=== PATIENT | female | born 1995 | race Caucasian/White ===

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

== ENCOUNTER 2017-03-04 14:25 | Emergency (ER) | payer MEDICAID, OTHER ==
[~2017-03-04] VITALS: Ht 165.1 cm; Wt 86.4 kg
[~2017-03-04 14:25] MED LIST changes: -LEVORA
[2017-03-04 14:55] VITALS: BP 156/89
[2017-03-04] MEDS ORDERED: LEVORA (14:59)
== END 2017-03-04 16:43 | disposition left against medical advice (07) ==
LOC: M ED 14:25
DX: J02.9 Acute pharyngitis, unspecified (principal); Z53.21 Procedure and treatment not carried out due to patient leaving prior to being seen by health care provider

== ENCOUNTER → 2017-03-04 | Outpatient (CLI) | payer OTHER ==
[~2017-03-04] MED LIST changes: +ACET50TA PO; +IBUP-1114 PO; +LEVORA; +PRENTAB9 PO
== END ==
LOC: M LAB 17:42
PROVIDERS: ATTEND Physician Assistant
DX: R53.83 Other fatigue (principal)

== ENCOUNTER → 2017-07-21 | Outpatient (REF) | payer OTHER ==
[2017-07-22 08:13] LABS: INFLUENZA A AMPLIFICATION NEGATIVE (NEGATIVE); INFLUENZA B AMPLIFICATION NEGATIVE (NEGATIVE)
== END ==
LOC: M LAB REF 21:19
DX: J11.1 Influenza due to unidentified influenza virus with other respiratory manifestations (principal)

== ENCOUNTER → 2017-08-05 | Outpatient (CLI) | payer OTHER | LOC: M RAD 12:10 | DX: G93.2 Benign intracranial hypertension (principal) ==

== ENCOUNTER 2017-08-09 14:20 | Emergency (ER) | payer OTHER ==
[2017-08-09] MEDS ORDERED: PROHANCE 279.3MG/ML 15ML VIAL (A9576) As Ordered (16:37)
[2017-08-09] MEDS ORDERED: PROHANCE 279.3MG/ML 5ML VIAL (A9576) As Ordered (16:37)
== END 2017-08-09 18:35 | disposition home or self-care (01) ==
LOC: M ED 14:20
DX: G93.2 Benign intracranial hypertension (principal); Z98.2 Presence of cerebrospinal fluid drainage device; Z79.899 Other long term (current) drug therapy
CPT/HCPCS: A9576

== ENCOUNTER → 2017-08-11 | Outpatient (CLI) | payer OTHER ==
[~2017-08-11] MED LIST changes: -ACET50TA PO; +ACETAMINOPHEN 325 MG TAB As Ordered; -DIAM500C PO; -IBUP-1114 PO; -NORCOTAB PO; -NORT10CA2 PO; -PRENTAB9 PO; -trimethoprim OR
[2017-08-11 14:32] LABS: CSF RBC < 2 10^3/uL (<2)
[2017-08-11 14:33] LABS: APPEARANCE, CSF CLEAR (CLEAR); COLOR, CSF COLORLESS (COLORLESS); CSF DIFF IF INDICATED? NO (NO); CSF TUBE# CELL CNT TUBE 1; CSF WBC 1 /uL (0-10)
[2017-08-11 14:52] LABS: CSF TUBE# GLU TUBE 3; CSF TUBE# TP TUBE 3; GLUCOSE CSF 65 MG/DL (40-75); TOTAL PROTEIN,CSF 19.3 MG/DL (15-45)
[2017-08-12 08:21] LABS: CSF GROUP B STREP NEGATIVE (NEGATIVE); CSF H. INFLUENZA NEGATIVE (NEGATIVE); CSF N MENINGITIDIS ACYW135 NEGATIVE (NEGATIVE); CSF STREP PNUEMO NEGATIVE (NEGATIVE); CSF TUBE# BACT AG TUBE 2
[2017-08-13 14:18] LABS: IMMUNOGLOBULIN G CSF 1.2 mg/dL (0.0-8.6)
== END ==
LOC: M RADPRO 12:03
DX: G93.2 Benign intracranial hypertension (principal); Z79.899 Other long term (current) drug therapy
CPT/HCPCS: 62272

== ENCOUNTER → 2017-11-10 | Outpatient (CLI) | payer OTHER ==
[2017-11-10 17:43] LABS: CONTROL LINE HCG INT CTR LINE PRESENT; HCG, SERUM QUALITATIVE NEGATIVE (NEGATIVE)
== END ==
LOC: M LAB 16:42
DX: Z34.82 Encounter for supervision of other normal pregnancy, second trimester (principal)

== ENCOUNTER → 2017-11-10 | Outpatient (CLI) | payer OTHER ==
[2017-11-10 13:16] LABS: BASO % 0.4 % (0.0-1.0); EOS # 0.2 10^3/uL (0.0-0.50); EOS % 2.4 % (0.0-3.0); HEMATOCRIT 37.7 % (36.0-47.0); HEMOGLOBIN 12.4 g/dl (12.0-15.5); IMMATURE GRANULOCYTE % 0.7 % (0-3.0); LYMPH # 2.2 10^3/uL (1.5-6.5); LYMPH % 31.7 % (24.0-44.0); MEAN CORPUSCULAR HEMOGLOBIN 27.9 pg (27.0-33.0); MEAN CORPUSCULAR HGB CONC 32.9 g/dl (32.0-36.5); MEAN CORPUSCULAR VOLUME 84.7 fl (80.0-96.0); MONO # 0.6 10^3/uL (0.0-0.8); MONO % 8.2 % (0.0-5.0); NEUTROPHILS # 3.9 10^3/uL (1.8-7.7); NEUTROPHILS % 56.6 % (36.0-66.0); PLATELET COUNT, AUTOMATED 309 10^3/uL (150-450); RED BLOOD COUNT 4.45 10^6/uL (4.00-5.40); RED CELL DISTRIBUTION WIDTH 13.5 % (11.5-14.5); WHITE BLOOD COUNT 6.9 10^3/uL (4.0-10.0)
[2017-11-10 13:24] LABS: APPEARANCE, URINE CLEAR (CLEAR); BACTERIA, URINE AUTO NEGATIVE (NEGATIVE); BILIRUBIN, URINE AUTO NEGATIVE (NEGATIVE); BLOOD, URINE BLOOD NEGATIVE (NEGATIVE); COLOR, URINE YELLOW (YELLOW); GLUCOSE, URINE (UA) AUTO NEGATIVE (NEGATIVE); KETONE, URINE AUTO NEGATIVE (NEGATIVE); LEUKOCYTE ESTERASE, URINE AUTO TRACE (NEGATIVE); NITRITE, URINE AUTO NEGATIVE (NEGATIVE); PROTEIN, URINE AUTO NEGATIVE (NEGATIVE); RBC, URINE AUTO 1 /HPF (0-3); SPECIFIC GRAVITY URINE AUTO 1.021 (1.002-1.035); SQUAMOUS EPITHELIAL CELL UR AU 1 /HPF (0-6); UROBILINOGEN, URINE AUTO 0.2 mg/dL (0.0-2.0); WBC, URINE AUTO 1 /HPF (0-3)
[2017-11-10 13:27] LABS: INR 0.94; PROTHROMBIN TIME 12.6 SECONDS (12.4-14.5)
[2017-11-10 13:28] LABS: PARTIAL THROMBOPLASTIN TIME 32.6 SECONDS (26.8-37.9)
[2017-11-10 14:02] LABS: ANION GAP 4 MEQ/L (8-16); BLOOD UREA NITROGEN 9 MG/DL (7-18); CALCIUM LEVEL 8.9 MG/DL (8.5-10.1); CARBON DIOXIDE LEVEL 28 MEQ/L (21-32); CHLORIDE LEVEL 108 MEQ/L (98-107); GLUCOSE, FASTING 121 MG/DL (70-100); POTASSIUM SERUM 4.4 MEQ/L (3.5-5.1); SODIUM LEVEL 140 MEQ/L (136-145)
== END ==
LOC: M LAB 12:31
DX: H47.333 Pseudopapilledema of optic disc, bilateral (principal); G93.2 Benign intracranial hypertension

== ENCOUNTER → 2017-11-20 | Outpatient (CLI) | payer OTHER ==
[~2017-11-20] MED LIST changes: -ACETAMINOPHEN 325 MG TAB As Ordered; +LIDOCAINE 1% MDV 20ML VIAL As Ordered
[2017-11-20 15:43] LABS: CSF RBC < 2 10^3/uL (<2)
[2017-11-20 15:44] LABS: APPEARANCE, CSF CLEAR (CLEAR); COLOR, CSF COLORLESS (COLORLESS); CSF DIFF IF INDICATED? NO (NO); CSF TUBE# CELL CNT TUBE 1; CSF WBC 1 /uL (0-10)
[2017-11-20 15:50] LABS: CSF TUBE# GLU TUBE 1; CSF TUBE# TP TUBE 1; GLUCOSE CSF 56 MG/DL (40-75); TOTAL PROTEIN,CSF 18.5 MG/DL (15-45)
== END ==
LOC: M RADPRO 12:09
DX: G93.2 Benign intracranial hypertension (principal); H47.11 Papilledema associated with increased intracranial pressure; Z95.828 Presence of other vascular implants and grafts; Z79.899 Other long term (current) drug therapy
CPT/HCPCS: 62272

== ENCOUNTER → 2017-12-09 | Outpatient (CLI) | payer OTHER ==
[2017-12-09 10:52] LABS: FREE T4 0.83 NG/DL (0.78-1.33)
[2017-12-09 10:52] LABS: GLUCOSE, FASTING 102 MG/DL (70-100)
[2017-12-09 10:54] LABS: TOTAL 25(OH) VITAMIN D 13.8 NG/ML (30.0-100.0)
[2017-12-09 11:06] LABS: CONTROL LINE HCG INT CTR LINE PRESENT; HCG, SERUM QUALITATIVE NEGATIVE (NEGATIVE)
[2017-12-13 09:05] LABS: INSULIN FREE 47 uU/mL (.); INSULIN TOTAL2 47 uU/mL (.)
== END ==
LOC: M LAB 09:39
DX: R63.5 Abnormal weight gain (principal); F32.89 Other specified depressive episodes; N91.1 Secondary amenorrhea
CPT/HCPCS: 82947

== ENCOUNTER → 2017-12-23 | Outpatient (CLI) | payer OTHER ==
[2017-12-23 12:19] LABS: CSF TUBE# GLU TUBE 3; CSF TUBE# TP TUBE 1; GLUCOSE CSF 58 MG/DL (40-75); TOTAL PROTEIN,CSF 19.7 MG/DL (15-45)
[2017-12-23 12:33] LABS: CSF RBC < 2 10^3/uL (<2)
[2017-12-23 12:36] LABS: APPEARANCE, CSF CLEAR (CLEAR); COLOR, CSF COLORLESS (COLORLESS); CSF DIFF IF INDICATED? NO (NO); CSF TUBE# CELL CNT TUBE 1; CSF WBC 1 /uL (0-10)
[2017-12-26 00:08] LABS: IMMUNOGLOBULIN G CSF 1.2 mg/dL (0.0-8.6)
== END ==
LOC: M RADPRO 10:49
DX: G93.2 Benign intracranial hypertension (principal); H47.10 Unspecified papilledema
CPT/HCPCS: 62272

== ENCOUNTER → 2018-06-16 | Outpatient (CLI) | payer OTHER ==
[~2018-06-16] MED LIST changes: +ACET250T2; +DIAM500C PO; +IBUP-1114 PO; +LEVORA; -LIDOCAINE 1% MDV 20ML VIAL As Ordered; +MAPA500T2 PO; +NORCOTAB PO; +NORT10CA2 PO; +PRENTAB9 PO; +trimethoprim OR
--- NOTE | 2018-06-17 02:14 | REP ---
Clinical: Dating and viability. Technique: Transabdominal first trimester obstetrical ultrasound with color Doppler evaluation. Findings: Single live early intrauterine is appreciated. Placenta identified posteriorly and grade zero. Cervix measures 3.4 cm in length and appears closed. Biometrical measurements corresponds to 13 weeks 4 days gestational age with estimated date of delivery 12/18/2018 . heart rate equals 160 beats per minute. No gross abnormalities are identified. Impression: Single live early intrauterine at 13 weeks 4 days gestational age. Complete anatomical assessment should be performed and 19-20 weeks. Electronically Signed by Chapin Hoang MD 06/17/2018 02:07 A
== END ==
LOC: M SMT 14:41
PROVIDERS: ATTEND Advanced Practice Midwife
DX: Z36.89 Encounter for other specified antenatal screening (principal); Z3A.13 13 weeks gestation of pregnancy

== ENCOUNTER → 2018-06-18 | Outpatient (CLI) | payer OTHER ==
[2018-06-18 12:49] LABS: BASO % 0.2 % (0.0-1.0); EOS # 0.1 10^3/uL (0.0-0.50); EOS % 0.9 % (0.0-3.0); HEMATOCRIT 36.5 % (36.0-47.0); HEMOGLOBIN 12.4 g/dl (12.0-15.5); LYMPH # 1.8 10^3/uL (1.5-6.5); LYMPH % 20.4 % (24.0-44.0); MEAN CORPUSCULAR HEMOGLOBIN 29.8 pg (27.0-33.0); MEAN CORPUSCULAR VOLUME 87.7 fl (80.0-96.0); MONO # 0.5 10^3/uL (0.0-0.8); MONO % 5.2 % (0.0-5.0); NEUTROPHILS # 6.4 10^3/uL (1.8-7.7); NEUTROPHILS % 72.7 % (36.0-66.0); PLATELET COUNT, AUTOMATED 299 10^3/uL (150-450); RED BLOOD COUNT 4.16 10^6/uL (4.00-5.40); WHITE BLOOD COUNT 8.8 10^3/uL (4.0-10.0)
[2018-06-18 12:59] LABS: ALT/SGPT 20 U/L (12-78); BILIRUBIN,TOTAL 0.3 MG/DL (0.2-1.0); LDH LACTATE DEHYDROGENASE 132 U/L (84-246); URIC ACID 4.7 MG/DL (2.6-6.0)
[2018-06-18 13:06] LABS: TOTAL PROTEIN,RANDOM URINE 33.1 MG/DL (0.0-12.0)
[2018-06-18 13:19] LABS: RUBELLA IgG QUALITATIVE IMMUNE (IMMUNE)
[2018-06-18 13:47] LABS: HEPATITIS C VIRUS ABY INDEX 0.2 INDEX (<0.8)
[2018-06-18 13:48] LABS: HIV 1&2 SCREEN CENTAUR NEGATIVE (NEGATIVE)
[2018-06-18 14:44] LABS: CHLAMYDIA DNA AMPLIFICATION NEGATIVE (NEGATIVE); GC DNA AMPLIFICATION NEGATIVE (NEGATIVE)
== END ==
LOC: M LAB 10:43
PROVIDERS: ATTEND Advanced Practice Midwife
DX: Z34.81 Encounter for supervision of other normal pregnancy, first trimester (principal); Z3A.12 12 weeks gestation of pregnancy

== ENCOUNTER → 2018-07-24 | Outpatient (REF) | payer OTHER ==
[2018-07-26 12:45] LABS: CREATININE CLEARANCE, URINE 463.2 ML/MIN (75-115); CREATININE, SERUM 0.4 MG/DL (0.6-1.0); TOTAL PROTEIN 24 HOUR URINE 236.3 MG/24HR (50-150); URINE TOTAL PROTEIN 16.3 MG/DL (0-12)
== END ==
LOC: M LAB REF 09:40
PROVIDERS: ATTEND Advanced Practice Midwife
DX: Z34.81 Encounter for supervision of other normal pregnancy, first trimester (principal); Z3A.12 12 weeks gestation of pregnancy

== ENCOUNTER → 2018-08-02 | Outpatient (CLI) | payer OTHER ==
--- NOTE | 2018-08-02 19:44 | REP ---
Clinical: Anatomical evaluation. Findings: Examination demonstrates a single live intrauterine in breech presentation. motion is identified by technologist. Placenta is noted posterior and grade grade zero without evidence for placenta previa or abruption. Amniotic fluid volume is normal. Cervix measures 5.3 cm in length and appears closed. No evidence for nuchal cord. Gestational age by LMP 20 weeks 2 days with ELIS 12/18/2018 . Gestational age by current measurements 20 weeks 4 days with ELIS 12/16/2018 . FHR equals 131 beats per minute. BPD 4.8 cm 20 weeks 4-day HC 17.9 cm 20 weeks 2 days AC 15.4 cm 20 weeks 4 days FL 3.2 cm 20 weeks 0 days HL 3.4 cm 21 weeks 4 days HC/AC ratio 1.16 Estimated weight 346 grams ( 49th percentile). Anatomical assessment demonstrates normal structures including cranium, choroid plexus, cavum, cerebellum/posterior fossa, facial features, lungs, diaphragm, stomach, cord insertion/three-vessel cord, kidneys/bladder, spine, and extremities. Impression: Single live intrauterine in breech presentation demonstrating appropriate interval growth. In conjunction with prior examination limited evaluation of the cardiac ventricular outflow tracts is again noted. Remainder of the anatomical assessment is complete and normal. Electronically Signed by Chapin Hoang MD 08/02/2018 07:36 P
== END ==
LOC: M RAD 09:22
PROVIDERS: ATTEND Advanced Practice Midwife
DX: Z36.89 Encounter for other specified antenatal screening (principal); Z3A.20 20 weeks gestation of pregnancy

== ENCOUNTER → 2018-08-24 | Outpatient (CLI) | payer OTHER, MEDICAID ==
--- NOTE | 2018-08-24 15:11 | REP ---
Clinical: Anatomical evaluation. Comparison: 08/02/2018 . Findings: Examination demonstrates a single live intrauterine in variable presentation. motion is identified by technologist. Placenta is noted posterior and grade grade zero without evidence for placenta previa or abruption. Amniotic fluid volume is normal. Cervix measures 5.1 cm in length and appears closed. No evidence for nuchal cord. Gestational age by LMP 23 weeks 3 days with ELIS 12/18/2018 . Gestational age by current measurements 24 weeks 2 days with ELIS 12/12/2018 . FHR equals 153 beats per minute. Estimated weight 682 grams ( 72nd percentile). Anatomical assessment demonstrates normal structures including four-chamber heart/ventricular outflow tracts. Impression: 1. Single live intrauterine in variable presentation demonstrating appropriate interval growth. 2. In conjunction with prior examination anatomical assessment is complete and normal. No gross abnormalities are identified. Electronically Signed by Chapin Hoang MD 08/24/2018 03:03 P
== END ==
LOC: M RAD 12:59
PROVIDERS: ATTEND Specialist
DX: O99.212 Obesity complicating pregnancy, second trimester (principal); Z3A.23 23 weeks gestation of pregnancy

== ENCOUNTER → 2018-10-22 | Outpatient (CLI) | payer OTHER, MEDICAID ==
[~2018-10-22] MED LIST changes: +HYDR-3715 PO; -NORCOTAB PO
[2018-10-22 13:52] LABS: HEMATOCRIT 34.9 % (36.0-47.0); HEMOGLOBIN 11.4 g/dl (12.0-15.5); MEAN CORPUSCULAR HEMOGLOBIN 29.7 pg (27.0-33.0); MEAN CORPUSCULAR HGB CONC 32.7 g/dl (32.0-36.5); MEAN CORPUSCULAR VOLUME 90.9 fl (80.0-96.0); PLATELET COUNT, AUTOMATED 266 10^3/uL (150-450); RED BLOOD COUNT 3.84 10^6/uL (4.00-5.40)
== END ==
LOC: M LAB 11:38
PROVIDERS: ATTEND Advanced Practice Midwife
DX: Z34.82 Encounter for supervision of other normal pregnancy, second trimester (principal)

== ENCOUNTER 2018-10-28 12:21 | Emergency (ER) | payer OTHER, MEDICAID ==
[~2018-10-28] VITALS: Ht 167.6 cm; Wt 99.5 kg
[2018-10-28 16:03] LABS: BASO % 0.3 % (0.0-1.0); EOS # 0.3 10^3/uL (0.0-0.50); EOS % 2.6 % (0.0-3.0); HEMATOCRIT 36.6 % (36.0-47.0); LYMPH % 20.2 % (24.0-44.0); MEAN CORPUSCULAR HEMOGLOBIN 28.8 pg (27.0-33.0); MEAN CORPUSCULAR HGB CONC 32.8 g/dl (32.0-36.5); MEAN CORPUSCULAR VOLUME 87.8 fl (80.0-96.0); MONO # 0.6 10^3/uL (0.0-0.8); MONO % 6.2 % (0.0-5.0); NEUTROPHILS # 6.9 10^3/uL (1.8-7.7); NEUTROPHILS % 70.3 % (36.0-66.0); PLATELET COUNT, AUTOMATED 323 10^3/uL (150-450); RED BLOOD COUNT 4.17 10^6/uL (4.00-5.40); WHITE BLOOD COUNT 9.9 10^3/uL (4.0-10.0)
[2018-10-28 16:42] LABS: BLOOD UREA NITROGEN 6 MG/DL (7-18); CALCIUM LEVEL 8.6 MG/DL (8.5-10.1); CARBON DIOXIDE LEVEL 25 MEQ/L (21-32); CHLORIDE LEVEL 105 MEQ/L (98-107); CK-MB VALUE MASS < 1.0 NG/ML (<3.6); CPK CREATINE PHOSPHOKINASE 23 U/L (26-192); CREATININE FOR GFR 0.51 MG/DL (0.55-1.30); GLOMERULAR FILTRATION RATE > 60.0 (>60); GLUCOSE, FASTING 68 MG/DL (70-100); MB/CK RELATIVE INDEX 4.35 (< OR =4); POTASSIUM SERUM 4.8 MEQ/L (3.5-5.1); SODIUM LEVEL 137 MEQ/L (136-145); TROPONIN I < 0.02 NG/ML (< 0.10)
[2018-10-28 16:57] VITALS: BP 121/78
--- NOTE | 2018-10-29 05:57 | ECGEPIP ---
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
== END 2018-10-28 17:14 | disposition home or self-care (01) ==
LOC: M ED 12:21
DX: O99.89 Other specified diseases and conditions complicating pregnancy, childbirth and the puerperium (principal); R61 Generalized hyperhidrosis; R42 Dizziness and giddiness; O16.3 Unspecified maternal hypertension, third trimester; O99.353 Diseases of the nervous system complicating pregnancy, third trimester; G93.2 Benign intracranial hypertension; Z98.2 Presence of cerebrospinal fluid drainage device; Z3A.32 32 weeks gestation of pregnancy

== ENCOUNTER → 2018-11-19 | Outpatient (REF) | payer OTHER, MEDICAID | LOC: M LAB REF 17:36 | PROVIDERS: ATTEND Advanced Practice Midwife | DX: Z34.83 Encounter for supervision of other normal pregnancy, third trimester (principal) ==

== ENCOUNTER → 2018-11-19 | Outpatient (CLI) | payer OTHER, MEDICAID | LOC: M LAB 07:53 | PROVIDERS: ATTEND Advanced Practice Midwife | DX: Z34.82 Encounter for supervision of other normal pregnancy, second trimester (principal); Z3A.00 Weeks of gestation of pregnancy not specified ==

== ENCOUNTER → 2019-07-31 | Outpatient (REF) | payer OTHER ==
[~2019-07-31] MED LIST changes: +ACET-683 PO; +IBUP80TA PO
[2019-08-01 14:20] LABS: INFLUENZA A AMPLIFICATION NEGATIVE (NEGATIVE); INFLUENZA B AMPLIFICATION NEGATIVE (NEGATIVE)
== END ==
LOC: M LAB REF 12:03
PROVIDERS: ATTEND Physician Assistant
DX: J11.1 Influenza due to unidentified influenza virus with other respiratory manifestations (principal)

== ENCOUNTER → 2020-05-10 | Outpatient (REF) | payer OTHER | LOC: M SFHCWAGY 13:33 | PROVIDERS: ATTEND Advanced Practice Midwife | DX: Z12.4 Encounter for screening for malignant neoplasm of cervix (principal); R87.612 Low grade squamous intraepithelial lesion on cytologic smear of cervix (LGSIL) ==

== ENCOUNTER → 2020-06-07 | Outpatient (REF) | payer OTHER ==
[2020-06-07 14:21] LABS: HEMATOCRIT 36.2 % (36.0-47.0); HEMOGLOBIN 11.7 g/dl (12.0-15.5); MEAN CORPUSCULAR HEMOGLOBIN 27.9 pg (27.0-33.0); MEAN CORPUSCULAR HGB CONC 32.3 g/dl (32.0-36.5); MEAN CORPUSCULAR VOLUME 86.4 fl (80.0-96.0); PLATELET COUNT, AUTOMATED 285 10^3/uL (150-450); RED BLOOD COUNT 4.19 10^6/uL (4.00-5.40); WHITE BLOOD COUNT 8.8 10^3/uL (4.0-10.0)
[2020-06-07 14:30] LABS: ALT/SGPT 19 U/L (12-78); BILIRUBIN,TOTAL 0.3 MG/DL (0.2-1.0); CREATININE FOR GFR 0.52 MG/DL (0.55-1.30); GLOMERULAR FILTRATION RATE > 60.0 (>60); GLUCOSE CHALLENGE TEST 1 HOUR 151 MG/DL (LESS THAN 140); LDH LACTATE DEHYDROGENASE 115 U/L (84-246); URIC ACID 3.6 MG/DL (2.6-6.0)
[2020-06-07 14:44] LABS: TOTAL PROTEIN,RANDOM URINE 9.3 MG/DL (0.0-12.0)
[2020-06-07 15:15] LABS: HEPATITIS C VIRUS ABY INDEX 0.2 INDEX (<0.8)
[2020-06-07 20:18] LABS: HIV 1&2 SCREEN CENTAUR NEGATIVE (NEGATIVE)
== END ==
LOC: M PLALAB 09:47
PROVIDERS: ATTEND Advanced Practice Midwife
DX: Z3A.01 Less than 8 weeks gestation of pregnancy (principal)

== ENCOUNTER 2020-07-05 18:57 | Emergency (ER) | payer OTHER ==
[~2020-07-05] VITALS: Ht 167.6 cm; Wt 95.1 kg
[2020-07-05 18:57] VITALS: BP 130/79
[~2020-07-05 18:57] MED LIST changes: -MULTTAB20 PO
--- OUTSIDE RECORDS SUMMARY | 2020-07-05 19:04 | CCD ---
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 Name Role Phone Eugenia Casanova Unavailable PROBLEMS Type Condition ICD9-CM Code ANE31-XG Code Onset Dates Condition S tatus SNOMED Code Notes Problem BMI 33.0-33.9,adult Z68.33 Active 033724685 Problem Supervision of other normal Z34.80 Ac tive [id number] Problem Obesity affecting in first trimester O99 .211 Active [id number] ALLERGIES No Known Allergies ENCOUNTERS from 1995 to 2020-04-24 Encounter Location Date Provider Diagnosis [facility] [address] [place] [address] Apr, Eugenia Casanova Obesity affecting in first trimester O99.211 ; 7 weeks gestation of Z3A.01 and BMI 33.0- 33.9,adult Z68.33 IMMUNIZATIONS No Information SOCIAL HISTORY Tobacco Use: Social History Observation Description Date Details (start date - stop date) Never Smoker Sex Assigned At : Social History Observation Description Sex Assigned At Unknown Sexual Hx: Question Answer Notes Had sex in the last 12 months (vaginal, oral, or anal)? Yes LMP: 02/07/2020 Have you ever had an STD? No with Men only Use protection? No Alcohol Screening: Question Answer Notes Did you have a drink containing alcohol in the past year? No Points 0 Interpretation Negative Tobacco Use: Question Answer Notes Are you a: never smoker REASON FOR REFERRAL No Information VITAL SIGNS Weight 209.8 lbs Apr, Weight-kg 95.16 kg Apr, Height 66 in Apr, BMI 33.863 kg/m2 Apr, Blood pressure systolic 102 mm Hg Apr, Blood pressure diastolic 84 mm Hg Apr, MEDICATIONS Medication SIG (Take, Route, Frequency, Duration) Notes Start Da te End Date Status 27-1 MG 1 tablet Orally Once a day Active PROCEDURES No Information RESULTS No Results REASON FOR VISIT 1ST PN MEDICAL (GENERAL) HISTORY Type Description Date Medical History Pseudotumor Cerebri Surgical History Lumbar shunt 2016 Surgical History Ovarian cyst removed 2014 Surgical History T&A Hospitalization History Childbirth x2 Hospitalization History Lumbar shunt Goals Section No Information Health Concerns No Information MEDICAL EQUIPMENT No Information MENTAL STATUS No Information FUNCTIONAL STATUS No Information ASSESSMENTS Encounter Date Diagnosis Assessment Notes Treatment Notes Treatm ent Clinical Notes Apr, Obesity affecting in first tri mester (ICD-10 - O99.211) Apr, 7 weeks gestation of (ICD-10 - Z3A.01) Apr, BMI 33.0-33.9,adult (ICD-10 - Z68.33) PLAN OF TREATMENT Treatment Notes Test Name Order Date Pre Eclampsia Profile 2020-04-24 CREATININE,RANDOM URINE 2020-04-24 CBC - Complete Blood Count 2020-04-24 TOTAL PROTEIN,RANDOM URINE 2020-04-24 HIV 1&2 ANTIBODY SCREEN 2020-04-24 SYPHILIS ANTIBODY (RPR SCREEN) 2020-04-24 RUBELLA IMMUNE STATUS IgG 2020-04-24 URINE CULTURE 2020-04-24 CHLAMYDIA & GC DNA AMPLIFICAT 2020-04-24 HEPATITIS C ANTIBODY INDEX 2020-04-24 HBSAG 2020-04-24 Type and Screen Prenatal1 2020-04-24 HEMOGLOBIN A1c 2020-04-24 1 HR GLUCOSE (NON-ORDERABLE) 2020-04-24 Next Appt Details 4 Weeks Reason: Provider Name:Eugenia Casanova, 2020-05-10 11:00:00 AM, [address] [place], [address], Follow Up:4 WeeksPrenatal Insurance Providers Payer Name Payer Address Payer Phone Insured Name Patient Relati onship to Insured Coverage Start Date Coverage End Date [facility] [address] [address] [facility] [phone] J Carlos Vega
--- OUTSIDE RECORDS SUMMARY | 2020-07-05 19:04 | CCD ---
Author Author [facility] Organization [facility] Address Unknown Phone Unavailable Support Name Relationship Address Phone [facility] [place] [address] NICOLA BUCIO Next Of Kin [address] [place] [phone] [facility] [place] [address] SKH* Next Of Kin [address] [place] [address] LIDA HUNTLEY Next Of Kin [address] [place] [address] AIDAN DUNGVIGNESH Next Of Kin [address] [place] [address] [employer] Next Of Kin [address] [place] [address] ST Next Of Kin Unknown Unavailable UE Next Of Kin Unknown Unavailable CLEVELAND MIXON Next Of Kin [address] [place] [address] THAD MIXON Next Of Kin [address] [place] [address] MONTSERRAT MIXON Next Of Kin [address] [place] [address] NICOLA BUCIO ECON [address] [place] [address] Unavailable Re-disclosure Warning The records that you are about to access may contain information from federally-assisted alcohol or drug abuse programs. If such information is present, then the following federally mandated warning applies: This information has been disclosed to you from records protected by federal confidentiality rules (42 CFR part 2). The federal rules prohibit you from making any further disclosure of this information unless further disclosure is expressly permitted by the written consent of the person to whom it pertains or as otherwise permitted by 42 CFR part 2. A general authorization for the release of medical or other information is NOT sufficient for this purpose. The Federal rules restrict any use of the information to criminally investigate or prosecute any alcohol or drug abuse patient.The records that you are about to access may contain highly sensitive health information, the redisclosure of which is protected by Article 27-F of the [facility] Public Health law. If you continue you may have access to information: Regarding HIV / AIDS; Provided by facilities licensed or operated by the [facility] Office of Mental Health; or Provided by the [facility] Office for People With Developmental Disabilities. If such information is present, then the following [facility] mandated warning applies: This information has been disclosed to you from confidential records which are protected by state law. State law prohibits you from making any further disclosure of this information without the specific written consent of the person to whom it pertains, or as otherwise permitted by law. Any unauthorized further disclosure in violation of state law may result in a fine or [place] health care facility sentence or both. A general authorization for the release of medical or other information is NOT sufficient authorization for further disc losure. Family History Family Member Name Family Member Gender Family Member Status Date o f Status Description Data Source(s) Unknown Unknown Problem MEDENT ([facility]) Unknown Unknown Problem [facility] ) Unknown Unknown Problem MEDENT ([facility], ) Unknown Unknown Problem MEDENT ([facility], ) Unknown Unknown Problem [facility] ) Unknown [facility] Problem MEDENT ([facility] ) Unknown Unknown Problem [facility] ) Unknown Unknown Problem [facility] ) Unknown Unknown Problem MEDENT [facility] ) Unknown [facility] Problem MEDENT ([facility] ) Unknown Unknown Problem MEDENT ([facility] ) Unknown Unknown Problem [facility] ) Unknown Unknown Problem MEDENT ([facility], ) Unknown Unknown Problem MEDENT ([facility], ) Unknown Unknown Problem MEDENT ([facility], ) Encounters Encounter Providers Location Date Indications Data Source(s ) Unknown [address] [facility] [address] 06/08/2020 12:00:00 AM EST eCW1 ([facility]) (WC [facility]) [facility] [address] [place] [address] 06/07/2020 12:00:00 AM EST eCW1 ([facility]) (WC ESTOB) [facility] [address] [place] [address] 05/10/2020 12:00:00 AM EST eCW1 ([facility]) ( ESTOB) [facility] [address] [place] [address] 04/11/2020 12:00:00 AM EST eCW1 ([facility]) Outpatient [facility] 12/09/2019 04:24:00 PM EDT [facility] Outpatient [facility] 11/29/2019 12:02:24 AM EDT [facility] Outpatient [facility] 11/28/2019 12:32:01 PM EDT [facility] Insurance Providers Payer name Policy type / Coverage type Policy ID Covered libertarian ID Covered libertarian's relationship to dong Policy Dong Plan Information UMR [facility] [id number] DA2 [id number] UMR P UNAVAILABLE S UNAVAILA BLE UMR [facility] [id number] FA2 [id number] MEDICAID [id number] SP [id number] UMR [facility] [id number] FA2 [id number] UMR [facility] [id number] FA2 [id number] UMR [facility] [id number] FA2 [id number] MEDICAID [id number] SP [id number] UMR U [id number] Child [id number] UMR O [id number] S [id number] [facility] [facility] [employer] (HMO) [id number] Family Dependent [id number] [facility] [facility] [employer] [facility] (HMO) [id number] Family Dependent [id number] [place] Med[place] Part [place] [id number] Self [id number] Umr Commercial [id number] Self [id number] [place] [id number] Self [id number] [employer] (HMO) [id number] Fa maru Dependent [id number] UMR [facility] [id number] FA2 [id number] UMR U [id number] Child [id number] POM[facility] [id number] FA2 [id number] [facility] U [id number] Child [id number] [employer] PPO O [id number] O [id number] MEDICAID [id number] SP [id number] [place] Med[place] Part [place] [id number] Self [id number] [employer] (HMO) [id number] Fa maru Dependent [id number] MEDICAID [id number] SP [id number] [place] Medigap Part [place] [id number] Self [id number] [employer] (HMO) [id number] Fa maru Dependent [id number] [employer] (HMO) Fa maru Dependent [employer] [id number] FA2 [id number] [employer] PPO O [id number] C [id number] Medicaid-Pcap Medicaid Family Dependent [employer] Ppo Commercial Family Dependent [employer] Commercial Family Dependent [employer] [id number] FA2 [id number] [employer] [id number] FA2 [id number] Problems, Conditions, and Diagnoses Code Display Name Description Problem Type Effective Dates Data Source(s) O99.212 Maternal obesity complicatin g , childbirth and the puerperium, antepartum Obesity complicating , second trimester Problem 06/08/2020 12:00:00 AM EST eCW1 ([facility]) O99.212 Maternal obesity complicatin g , childbirth and the puerperium, antepartum Obesity complicating in second trimester Problem 06/07/2020 12:00:00 AM EST eCW1 ([facility]) Z3A.11 [id number] 11 weeks gestation of Problem 05/10/2020 12:00:00 AM EST eCW1 ([facility]) Z68.33 867026374 BMI 33.0-33.9,adult Problem 04/11/2020 12:00 :00 AM EST eCW1 ([facility]) O99.211 [id number] Obesity affecting in first trim korey Problem 04/11/2020 12:00:00 AM EST eCW1 ([facility]) Z34.80 care Supervision of other normal P ziggylem 04/11/2020 12:00:00 AM EST eCW1 ([facility]) Results ID Date Data Source [id number] 07/03/2020 12:00:00 AM EST [facility] Name Value Range Interpretation Code Description Data Keiry rce(s) Supporting Document(s) SARS coronavirus 2 pcr Negative [facility] This lab was ordered by Kevin and rep orted by Kevin. ID Date Data Source [id number] 06/13/2020 12:00:00 AM EST [facility] Name Value Range Interpretation Code Description Data Keiry rce(s) Supporting Document(s) SARS coronavirus 2 (SARS-CoV-2) Positive [facility] This lab was ordered by [employer] and reported by [facility]. ID Date Data Source [id number] 05/30/2020 04:02:00 PM EST [facility] Name Value Range Interpretation Code Description Data Keiry rce(s) Supporting Document(s) SARS-CoV-2 [facility] This lab was ordered by [employer] and reported by [facility]. ID Date Data Source [id number] 05/27/2020 03:30:00 PM EST [facility] Name Value Range Interpretation Code Description Data Keiry rce(s) Supporting Document(s) SARS-CoV-2 [facility] This lab was ordered by [employer] and reported by [facility]. ID Date Data Source [id number] 04/28/2020 12:00:00 AM EST [facility] Name Value Range Interpretation Code Description Data Keiry rce(s) Supporting Document(s) SARS-CoV2 Rapid Antigen [facility] This lab was ordered by [facility] and reported by [facility]. ID Date Data Source [id number] 04/25/2020 03:24:00 PM EST [facility] Name Value Range Interpretation Code Description Data Keiry rce(s) Supporting Document(s) SARS-CoV-2 [facility] This lab was ordered by [employer] and reported by [facility]. ID Date Data Source [id number] 04/15/2020 12:00:00 AM EST [facility] Name Value Range Interpretation Code Description Data Keiry rce(s) Supporting Document(s) SARS [facility] This lab was ordered by [facility] and reported by [employer]. ID Date Data Source [id number] 04/04/2020 12:00:00 AM EST [facility] Name Value Range Interpretation Code Description Data Keiry rce(s) Supporting Document(s) SARS [facility] This lab was ordered by [facility] and reported by [employer]. ID Date Data Source [id number] 03/21/2020 11:25:00 AM EDT [facility] Name Value Range Interpretation Code Description Data Keiry rce(s) Supporting Document(s) SARS-CoV-2 [facility] This lab was ordered by [employer] and reported by [facility]. ID Date Data Source [id number] 03/07/2020 02:50:00 PM EDT [facility] Name Value Range Interpretation Code Description Data Keiry rce(s) Supporting Document(s) SARS-CoV-2 [facility] This lab was ordered by [employer] and reported by [facility]. ID Date Data Source [id number] 02/22/2020 10:02:00 AM EDT [facility] Name Value Range Interpretation Code Description Data Keiry rce(s) Supporting Document(s) SARS-CoV-2 [facility] This lab was ordered by [employer] and reported by [facility]. ID Date Data Source [id number] 02/15/2020 11:30:00 AM EDT [facility] Name Value Range Interpretation Code Description Data Keiry rce(s) Supporting Document(s) SARS-CoV-2 [facility] This lab was ordered by [employer] and reported by [facility]. ID Date Data Source [id number] 01/25/2020 12:00:00 AM EDT [facility] Name Value Range Interpretation Code Description Data Keiry rce(s) Supporting Document(s) 2019-nCoV RNA XXX AVIVA+probe-Imp [facility] This lab was ordered by [employer] and repo rted by [employer]. ID Date Data Source [id number] 01/18/2020 12:00:00 AM EDT [facility] Name Value Range Interpretation Code Description Data Keiry rce(s) Supporting Document(s) 2019-nCoV RNA XXX AVIVA+probe-Imp [facility] This lab was ordered by [employer] and repo rted by [employer] ID Date Data Source [id number] 01/04/2020 12:00:00 AM EDT [facility] Name Value Range Interpretation Code Description Data Keiry rce(s) Supporting Document(s) 2018-nCoV RNA XXX AVIVA+probe-Imp [facility] This lab was ordered by [employer] and repo rted by [employer] ID Date Data Source [id number] 12/28/2019 12:00:00 AM EDT [facility] Name Value Range Interpretation Code Description Data Keiry rce(s) Supporting Document(s) 2018-nCoV RNA XXX AVIVA+probe-Imp [facility] This lab was ordered by [employer] and repo rted by [employer]. ID Date Data Source [id number] 12/21/2019 12:00:00 AM EDT [facility] Name Value Range Interpretation Code Description Data Keiry rce(s) Supporting Document(s) 2018-nCoV RNA XXX AVIVA+probe-Imp [facility] This lab was ordered by [employer] and repo rted by [employer]. ID Date Data Source [id number] 12/16/2019 12:00:00 AM EDT [facility] Name Value Range Interpretation Code Description Data Keiry rce(s) Supporting Document(s) 2018-nCoV RNA XXX AVIVA+probe-Imp [facility] This lab was ordered by [employer] and repo rted by [employer]. Procedure Social History Code Duration Value Status Description Data Source(s ) Smoking 06/04/2020 12:00:00 AM EST Never Smoker completed Never S moker eCW1 ([facility]) Smoking 06/04/2020 12:00:00 AM EST Never Smoker completed Never S moker eCW1 ([facility]) Smoking 05/07/2020 12:00:00 AM EST Never Smoker completed Never S moker eCW1 ([facility]) Smoking 04/11/2020 12:00:00 AM EST Never Smoker completed Never S moker eCW1 ([facility]) Vital Signs ID Date Data Source UNK Name Value Range Interpretation Code Description Data Source(s) Diastolic blood pressure 80 mm[Hg] 80 mm[Hg] eCW1 ([facility]) Systolic blood pressure 122 mm[Hg] 122 mm[Hg] e CW1 ([facility]) Body mass index (BMI) [Ratio] 33.217 kg/m2 33.2 17 kg/m2 eCW1 ([facility]) Body height 66 [in_i] 66 [in_i] eCW1 ([facility]) Body weight 93.35 kg 93.35 kg eCW1 ([facility]) Body weight 205.8 [lb_av] 205.8 [lb_av] eCW1 ([facility]) Diastolic blood pressure 84 mm[Hg] 84 mm[Hg] eCW1 ([facility]) Systolic blood pressure 120 mm[Hg] 120 mm[Hg] e CW1 ([facility]) Body mass index (BMI) [Ratio] 33.411 kg/m2 33.4 11 kg/m2 eCW1 ([facility]) Body height 66 [in_i] 66 [in_i] eCW1 ([facility]) Body weight 93.89 kg 93.89 kg eCW1 ([facility]) Body weight 207.0 [lb_av] 207.0 [lb_av] eCW1 ([facility]) Body weight 209.8 [lb_av] 209.8 [lb_av] eCW1 ([facility]) Body weight 95.16 kg 95.16 kg eCW1 ([facility]) Body height 66 [in_i] 66 [in_i] eCW1 ([facility]) Body mass index (BMI) [Ratio] 33.863 kg/m2 33.8 63 kg/m2 eCW1 ([facility]) Systolic blood pressure 102 mm[Hg] 102 mm[Hg] e CW1 ([facility]) Diastolic blood pressure 84 mm[Hg] 84 mm[Hg] eCW1 ([facility])
--- OUTSIDE RECORDS SUMMARY | 2020-07-05 19:04 | CCD ---
Author Author [facility] Organization [facility] Address Unknown Phone Unavailable Care Team Providers Care Rope Maker Name Role Phone Eugenia Casanova Unavailable PROBLEMS Type Condition ICD9-CM Code UBL32-MY Code Onset Dates Condition S tatus SNOMED Code Notes Problem Obesity complicating in second trimester O99.212 Active 218947657674 Problem Obesity complicating , second trimester O 99.212 Active 204833132076 Problem Supervision of other normal Z34.80 Ac tive 593365003 Problem Obesity affecting in first trimester O99 .211 Active 045300143071 Problem BMI 33.0-33.9,adult Z68.33 Active 744385547 Problem 11 weeks gestation of Z3A.11 Active 42326955 ALLERGIES No Known Allergies ENCOUNTERS from 1997 to 2020-06-09 Encounter Location Date Provider Diagnosis [facility] [address] [place] [id number] Jun, Eugenia Casanova Obesity complicat ing , second trimester O99.212 IMMUNIZATIONS No Information SOCIAL HISTORY Tobacco Use: [...] REASON FOR REFERRAL No Information VITAL SIGNS No information MEDICATIONS Medication SIG (Take, Route, Frequency, Duration) Notes Start Da te End Date Status 27-1 MG 1 tablet Orally Once a day Active PROCEDURES No Information RESULTS No Results REASON FOR VISIT No Information MEDICAL (GENERAL) HISTORY Type Description Date Medical History Pseudotumor Cerebri Surgical History Lumbar shunt 2015 Surgical History Ovarian cyst removed 2014 Surgical History T&A Hospitalization History Childbirth x2 Hospitalization History Lumbar shunt Goals Section No Information Health Concerns No Information MEDICAL EQUIPMENT No Information MENTAL STATUS No Information FUNCTIONAL STATUS No Information ASSESSMENTS Encounter Date Diagnosis Assessment Notes Treatment Notes Treatm ent Clinical Notes Jun, Obesity complicating pregnan cy, second trimester (ICD-10 - O99.212) PLAN OF TREATMENT Treatment Notes Test Name Order Date GLUCOSE VIDA 3 HR GESTATIONAL 2020-06-09 Next Appt Details Provider Name:Eugenia Hooker, 2020-07-05 02:00:00 PM, [address] [place], [address], Insurance Providers Payer Name Payer Address Payer Phone Insured Name Patient Relati onship to Insured Coverage Start Date Coverage End Date [facility] [address] [facility] [phone] J Carlos Mixon
--- OUTSIDE RECORDS SUMMARY | 2020-07-05 19:04 | CCD ---
Author Author [facility] Organization [facility] Address Unknown Phone Unavailable Care Team Providers Care Glass Handler Name Role Phone Eugenia Casanova Unavailable PROBLEMS Type Condition ICD9-CM Code TRX51-BT Code Onset Dates Condition S tatus SNOMED Code Notes Problem Obesity complicating in second trimester O99.212 Active 842463031335 Problem Obesity complicating , second trimester O 99.212 Active 451612129820 Problem Supervision of other normal Z34.80 Ac tive 655092769 Problem Obesity affecting in first trimester O99 .211 Active 138293847838 Problem BMI 33.0-33.9,adult Z68.33 Active 945050254 Problem 11 weeks gestation of Z3A.11 Active 24522380 ALLERGIES No Known Allergies ENCOUNTERS from 1997 to 2020-06-13 Encounter Location Date Provider Diagnosis [facility] [address] [place] [id number] Jun, Eugenia Casanova 15 weeks gestatio n of Z3A.15 and Obesity complicating in second trimester O99.212 IMMUNIZATIONS No Information SOCIAL [...] FOR REFERRAL No Information VITAL SIGNS Weight 205.8 lbs Jun, Weight-kg 93.35 kg Jun, Height 66 in Jun, BMI 33.217 kg/m2 Jun, Blood pressure systolic 122 mm Hg Jun, Blood pressure diastolic 80 mm Hg Jun, MEDICATIONS Medication SIG (Take, Route, Frequency, Duration) Notes Start Da te End Date Status 27-1 MG 1 tablet Orally Once a day Active PROCEDURES No Information RESULTS No Results REASON FOR VISIT 4 WK PN MEDICAL (GENERAL) HISTORY Type Description Date [...] Treatment Notes Treatm ent Clinical Notes Jun, 15 weeks gestation of (ICD-10 - Z3A.15 ) Jun, Obesity complicating pregnan cy in second trimester (ICD-10 - O99.212) PLAN OF TREATMENT Treatment Notes Test Name Order Date [facility] OBS COMPLETE 2020-06-13 Next Appt Details 4 Weeks Reason:return ob Provider [facility] 2020-07-05 02:00:00 PM, [address] [place], [address], Follow Up:4 Weeksreturn ob Insurance Providers Payer Name Payer Address Payer Phone Insured Name Patient Relati onship to Insured Coverage Start Date Coverage End Date [facility] [address] [address] [facility] [phone] J Carlos Vega
--- OUTSIDE RECORDS SUMMARY | 2020-07-05 19:04 | CCD ---
Author Author [facility] Organization [facility] Address Unknown Phone Unavailable Care Team Providers Care Armor Officer Name Role Phone Eugenia Casanova Unavailable PROBLEMS Type Condition ICD9-CM Code [id number]-UB Code Onset Dates Condition S tatus SNOMED Code Notes Problem BMI 33.0-33.9,adult Z68.33 Active 849066142 Problem 11 weeks gestation of Z3A.11 Active 87294332 Problem Supervision of other normal Z34.80 Ac tive 602300289 Problem Obesity affecting in first trimester O99 .211 Active 802363339449 ALLERGIES No Known Allergies ENCOUNTERS from 1997 to 2020-05-15 Encounter Location Date Provider Diagnosis [facility] [address] [place] [address] May, Eugenia Casanova Encounter for sup ervision of other normal , first trimester Z34.81 ; Encounter for screening for malignant neoplasm of cervix Z12.4 and 11 weeks gestation of Z3A.11 IMMUNIZATIONS No Information SOCIAL HISTORY Tobacco Use: [...] FOR REFERRAL No Information VITAL SIGNS Weight 207.0 lbs May, Weight-kg 93.89 kg May, Height 66 in May, BMI 33.411 kg/m2 May, Blood pressure systolic 120 mm Hg May, Blood pressure diastolic 84 mm Hg May, MEDICATIONS Medication SIG (Take, Route, Frequency, Duration) Notes Start Da te End Date Status 27-1 MG 1 tablet Orally Once a day Active PROCEDURES No Information RESULTS No Results REASON FOR VISIT 4 WK PN/PAP PER [facility] MEDICAL (GENERAL) HISTORY Type Description Date Medical [...] Notes Treatment Notes Treatm ent Clinical Notes May, Encounter for supervision of other normal , first trimester (ICD-10 - Z34.81) May, Encounter for screening for malignant neoplasm of cervix (ICD-10 - Z12.4) May, 11 weeks gestation of (ICD-10 - Z3A.11 ) PLAN OF TREATMENT Treatment Notes Test Name Order Date PAP REQUEST FOR SERVICE 2020-05-15 Next Appt Details 4 Weeks Reason: Provider Name:Eugenia Hookeridris, 2020-06-07 03:00:00 PM, [address] [place], [address], Follow Up:4 WeeksPrenatal Insurance Providers Payer Name Payer Address Payer Phone Insured Name Patient Relati onship to Insured Coverage Start Date Coverage End Date [facility] [address] [address] [facility] [phone] J Carlos Vega
[2020-07-05] MEDS ORDERED: MULTTAB20 PO (19:13)
[2020-07-05 20:50] LABS: BASO % 0.3 % (0.0-1.0); EOS # 0.2 10^3/uL (0.0-0.5); EOS % 1.9 % (0.0-3.0); HEMATOCRIT 34.5 % (36.0-47.0); HEMOGLOBIN 11.2 g/dl (12.0-15.5); LYMPH # 2.3 10^3/uL (1.5-5.0); LYMPH % 21.4 % (24.0-44.0); MEAN CORPUSCULAR HEMOGLOBIN 28.6 pg (27.0-33.0); MEAN CORPUSCULAR HGB CONC 32.5 g/dl (32.0-36.5); MONO # 0.8 10^3/uL (0.0-0.8); MONO % 7.3 % (0.0-5.0); NEUTROPHILS # 7.4 10^3/uL (1.5-8.5); NEUTROPHILS % 68.5 % (36.0-66.0); PLATELET COUNT, AUTOMATED 321 10^3/uL (150-450); RED BLOOD COUNT 3.92 10^6/uL (4.00-5.40); WHITE BLOOD COUNT 10.8 10^3/uL (4.0-10.0)
[2020-07-05 21:12] LABS: BLOOD UREA NITROGEN 7 MG/DL (7-18); C REACTIVE PROTEIN QUANTITATIV 1.84 MG/DL (0.00-0.30); CARBON DIOXIDE LEVEL 24 MEQ/L (21-32); CHLORIDE LEVEL 110 MEQ/L (98-107); CREATININE FOR GFR 0.49 MG/DL (0.55-1.30); GLOMERULAR FILTRATION RATE > 60.0 (>60); GLUCOSE, FASTING 89 MG/DL (70-100); POTASSIUM SERUM 4.3 MEQ/L (3.5-5.1); SODIUM LEVEL 140 MEQ/L (136-145)
[2020-07-05 21:45] LABS: ERYTHROCYTE SEDIMENTATION RATE 52 mm/hr (0-20)
--- OUTSIDE RECORDS SUMMARY | 2020-07-06 00:07 | CCD ---
Author Author [facility] Organization [facility] Address Unknown Phone Unavailable Support Name Relationship Address Phone [facility] [place] [address] NICOLA BUCIO Next Of Kin [address] [place] [phone] [facility] [place] [address] [facility]* Next Of Kin [address] [place] [address] LIDA HUNTLEY Next Of Kin [address] [place] [address] AIDAN DUNGVIGNESH Next Of Kin [address] [place] [address] [employer] Next Of Kin [address] [place] [address] ST Next Of Kin Unknown Unavailable UE Next Of Kin Unknown Unavailable CLEVELAND MIXON Next Of Kin [address] [place] [address] THAD MIXON Next Of Kin [address] [place] [address] MONTSERRAT MIXON Next Of Kin [address] [place] [address] NICOLA BUCIO ECON [address] [place] [address] Unavailable Re-disclosure Warning The records that you [...] is protected by Article 27-F of the [facility] Public Health law. If you continue you may have access to information: Regarding HIV / AIDS; Provided by facilities licensed or operated by the [facility] Office of Mental Health; or Provided by the [facility] Office for People With Developmental Disabilities. If such information is present, then the following [facility] mandated warning applies: This information has been [...] law may result in a fine or detention sentence or both. A general authorization for the release of medical or other information is NOT sufficient authorization for further disc losure. Family History Family Member Name Family Member Gender Family Member Status Date o f Status Description Data Source(s) Unknown Unknown Problem MEDENT ([facility] Unknown Unknown Problem [facility] ) Unknown Unknown Problem MEDENT ([facility], ) Unknown Unknown Problem MEDENT ([facility], ) Unknown Unknown Problem MEDENT ([facility], ) Unknown Unknown Problem MEDENT ([facility] ) Unknown Unknown Problem MEDENT ([facility] ) Unknown Unknown Problem MEDENT ([facility], ) Unknown Unknown Problem MEDENT ([facility], ) Unknown Unknown Problem MEDENT ([facility], ) Unknown Unknown Problem MEDENT ([facility] ) Unknown Unknown Problem MEDENT ([facility] ) Unknown Unknown Problem MEDENT ([facility], ) Unknown Unknown Problem MEDENT ([facility], ) Unknown Unknown Problem MEDENT ([facility], ) Encounters Encounter Providers Location Date Indications Data Source(s ) Unknown [address] [facility] [address] 06/08/2020 12:00:00 AM EST eCW1 ([facility]) (WC ESTOB) [facility] Est OB [address] [place] [address] 06/07/2020 12:00:00 AM EST eCW1 ([facility]) (WC ESTOB) [facility] [address] [place] [address] 05/10/2020 12:00:00 AM EST eCW1 ([facility]) ( ESTOB) [facility] Est OB [address] [place] [address] 04/11/2020 12:00:00 AM EST eCW1 ([facility]) Outpatient [facility] 12/09/2019 04:24:00 PM EDT [facility] Outpatient [facility] 11/29/2019 12:02:24 AM EDT [facility] Outpatient [facility] 11/28/2019 12:32:01 PM EDT [facility] Insurance Providers Payer name Policy type / Coverage type Policy ID Covered green party ID Covered green party's relationship to dong Policy Dong Plan Information [facility] [id number] DA2 [id number] UMR P UNAVAILABLE S UNAVAILA BLE [facility] [id number] FA2 [id number] MEDICAID [id number] SP [id number] [facility] [id number] FA2 [id number] [facility] [id number] FA2 [id number] [facility] [id number] FA2 [id number] MEDICAID [id number] SP [id number] UMR U [id number] Child [id number] UMR O [id number] S [id number] [facility] [facility] (HMO) [id number] Family Dependent [id number] [facility] [facility] (HMO) [id number] Family Dependent [id number] [place] Medig[place] [id number] Self [id number] Umr Commercial [id number] Self [id number] [place] Med[place] [id number] Self [id number] [facility] [facility] (HMO) [id number] Fa maru Dependent [id number] UMR [facility] [id number] FA2 [id number] UMR U [id number] Child [id number] [facility] [id number] FA2 [id number] [facility] U [id number] Child [id number] [employer] PPO O [id number] O [id number] MEDICAID [id number] SP [id number] [place] Med[place] Part [place] [id number] Self [id number] [facility] [facility] (HMO) [id number] Fa maru Dependent [id number] MEDICAID [id number] SP [id number] [place] Medigap Part [place] [id number] Self [id number] [employer] [facility] (HMO) [id number] Fa maru Dependent [id number] [employer] [facility] (HMO) Fa maru Dependent [employer] [id number] FA2 [id number] [employer] PPO O [id number] C [id number] Medicaid-Pcap Medicaid Family Dependent [employer] Ppo Commercial Family Dependent [place] Commercial Family Dependent [employer] [id number] FA2 [id number] [facility] [id number] FA2 [id number] Problems, Conditions, and Diagnoses Code Display Name Description Problem Type Effective Dates Data Source(s) O99.212 Maternal obesity complicatin g , childbirth and the puerperium, antepartum Obesity complicating , second trimester Problem 06/08/2020 12:00:00 AM EST eCW1 ([facility]) O99.212 Maternal obesity complicatin g , childbirth and the puerperium, antepartum Obesity complicating in second trimester Problem 06/07/2020 12:00:00 AM EST eCW1 ([facility]) Z3A.11 75156429 11 weeks gestation of Problem 05/10/2020 12:00:00 AM EST eCW1 ([facility]) Z68.33 683702105 BMI 33.0-33.9,adult Problem 04/11/2020 12:00 :00 AM EST eCW1 ([facility]) O99.211 [id number] Obesity affecting in first trim korey Problem 04/11/2020 12:00:00 AM EST eCW1 ([facility]) Z34.80 care Supervision of other normal P ziggylem 04/11/2020 12:00:00 AM EST eCW1 ([facility]) Results ID Date Data Source [id number] 07/03/2020 12:00:00 AM EST [facility] Name Value Range Interpretation Code Description Data Keiry rce(s) Supporting Document(s) SARS coronavirus 2 pcr Negative [facility] This lab was ordered by [facility] and rep orted by Kevin. ID Date Data Source [id number] 06/13/2020 12:00:00 AM EST [facility] Name Value Range Interpretation Code Description Data Keiry rce(s) Supporting Document(s) SARS coronavirus 2 (SARS-CoV-2) Positive [facility] This lab was ordered by [facility] and reported by [facility]. ID Date Data Source [id number] 05/30/2020 04:02:00 PM EST [facility] Name Value Range Interpretation Code Description Data Keiry rce(s) Supporting Document(s) SARS-CoV-2 [facility] This lab was ordered by [facility] and reported by [facility]. ID Date Data Source [id number] 05/27/2020 03:30:00 PM EST [facility] Name Value Range Interpretation Code Description Data Keiry rce(s) Supporting Document(s) SARS-CoV-2 [facility] This lab was ordered by [facility] and reported by [facility]. ID Date Data Source [id number] 04/28/2020 12:00:00 AM EST [facility] Name Value Range Interpretation Code Description Data Keiry rce(s) Supporting Document(s) SARS-CoV2 Rapid Antigen [facility] This lab was ordered by [facility] and reported by [facility]. ID Date Data Source [id number] 04/25/2020 03:24:00 PM EST [facility] Name Value Range Interpretation Code Description Data Keiry rce(s) Supporting Document(s) SARS-CoV-2 [facility] This lab was ordered by [facility] [facility] and reported by [facility]. ID Date Data Source [id number] 04/15/2020 12:00:00 AM EST [facility] Name Value Range Interpretation Code Description Data Keiry rce(s) Supporting Document(s) SARS [facility] This lab was ordered by [facility] and reported by [employer]. ID Date Data Source [id number] 04/04/2020 12:00:00 AM EST [facility] Name Value Range Interpretation Code Description Data Keiry rce(s) Supporting Document(s) SARS [facility] This lab was ordered by [facility] and reported by [employer]. ID Date Data Source [id number] 03/21/2020 11:25:00 AM EDT [facility] Name Value Range Interpretation Code Description Data Keiry rce(s) Supporting Document(s) SARS-CoV-2 [facility] This lab was ordered by [facility] and reported by [facility]. ID Date Data Source [id number] 03/07/2020 02:50:00 PM EDT [facility] Name Value Range Interpretation Code Description Data Keiry rce(s) Supporting Document(s) SARS-CoV-2 [facility] This lab was ordered by [facility] and reported by [facility]. ID Date Data Source [id number] 02/22/2020 10:02:00 AM EDT [facility] Name Value Range Interpretation Code Description Data Keiry rce(s) Supporting Document(s) SARS-CoV-2 [facility] This lab was ordered by [facility] and reported by [facility]. ID Date Data Source [id number] 02/15/2020 11:30:00 AM EDT [facility] Name Value Range Interpretation Code Description Data Keiry rce(s) Supporting Document(s) SARS-CoV-2 [facility] This lab was ordered by [facility] and reported by [facility]. ID Date Data Source [id number] 01/25/2020 12:00:00 AM EDT [facility] Name Value Range Interpretation Code Description Data Keiry rce(s) Supporting Document(s) 2019-nCoV RNA XXX AVIVA+probe-Imp [facility] This lab was ordered by [employer] and repo rted by [facility]. ID Date Data Source [id number] 01/18/2020 12:00:00 AM EDT [facility] Name Value Range Interpretation Code Description Data Keiry rce(s) Supporting Document(s) 2019-nCoV RNA XXX AVIVA+probe-Imp [facility] This lab was ordered by [employer] and repo rted by [employer] ID Date Data Source [id number] 01/04/2020 12:00:00 AM EDT [facility] Name Value Range Interpretation Code Description Data Keiry rce(s) Supporting Document(s) 2018-nCoV RNA XXX AVIVA+probe-Imp [facility] This lab was ordered by [facility] and repo rted by [employer] ID Date Data Source [id number] 12/28/2019 12:00:00 AM EDT [facility] Name Value Range Interpretation Code Description Data Keiry rce(s) Supporting Document(s) 2018-nCoV RNA XXX AVIVA+probe-Imp [facility] This lab was ordered by [employer] and repo rted by [facility]. ID Date Data Source [id number] 12/21/2019 12:00:00 AM EDT [facility] Name Value Range Interpretation Code Description Data Keiry rce(s) Supporting Document(s) 2018-nCoV RNA XXX AVIVA+probe-Imp [facility] This lab was ordered by [facility] and repo rted by [facility]. ID Date Data Source [id number] 12/16/2019 12:00:00 AM EDT [facility] Name Value Range Interpretation Code Description Data Keiry rce(s) Supporting Document(s) 2018-nCoV RNA XXX AVIVA+probe-Imp [facility] This lab was ordered by [employer] and repo rted by [facility]. Procedure Social History Code Duration Value Status Description Data Source(s ) Smoking 06/04/2020 12:00:00 AM EST Never Smoker completed Never S moker eCW1 ([facility]) Smoking 06/04/2020 12:00:00 AM EST Never Smoker completed Never S moker eCW1 ([facility]) Smoking 05/07/2020 12:00:00 AM EST Never Smoker completed Never S moker eCW1 ([facility]) Smoking 04/11/2020 12:00:00 AM EST Never Smoker completed Never S moker eCW1 ([facility]) Vital Signs ID Date Data Source UNK Name Value Range Interpretation Code Description Data Source(s) Diastolic blood pressure 80 mm[Hg] 80 mm[Hg] eCW1 ([facility]) Systolic blood pressure 122 mm[Hg] 122 mm[Hg] e CW1 ([facility]) Body mass index (BMI) [Ratio] 33.217 kg/m2 33.2 17 kg/m2 eCW1 ([facility]) Body height 66 [in_i] 66 [in_i] eCW1 ([facility]) Body weight 93.35 kg 93.35 kg eCW1 ([facility]) Body weight 205.8 [lb_av] 205.8 [lb_av] eCW1 ([facility]) Diastolic blood pressure 84 mm[Hg] 84 mm[Hg] eCW1 ([facility]) Systolic blood pressure 120 mm[Hg] 120 mm[Hg] e CW1 ([facility]) Body mass index (BMI) [Ratio] 33.411 kg/m2 33.4 11 kg/m2 eCW1 ([facility]) Body height 66 [in_i] 66 [in_i] eCW1 ([facility]) Body weight 93.89 kg 93.89 kg eCW1 ([facility]) Body weight 207.0 [lb_av] 207.0 [lb_av] eCW1 ([facility]) Body weight 209.8 [lb_av] 209.8 [lb_av] eCW1 ([facility]) Body weight 95.16 kg 95.16 kg eCW1 ([facility]) Body height 66 [in_i] 66 [in_i] eCW1 ([facility]) Body mass index (BMI) [Ratio] 33.863 kg/m2 33.8 63 kg/m2 eCW1 ([facility]) Systolic blood pressure 102 mm[Hg] 102 mm[Hg] e CW1 ([facility]) Diastolic blood pressure 84 mm[Hg] 84 mm[Hg] eCW1 ([facility])
== END 2020-07-05 23:44 | disposition left against medical advice (07) ==
LOC: M ED 18:57
DX: Z53.21 Procedure and treatment not carried out due to patient leaving prior to being seen by health care provider (principal)

== ENCOUNTER → 2020-07-05 | Outpatient (CLI) | payer OTHER ==
[~2020-07-05] MED LIST changes: +MULTTAB20 PO
--- NOTE | 2020-07-06 04:18 | REP ---
INDICATION: ANATOMY COMPARISON: None. TECHNIQUE: Transabdominal obstetrical ultrasound with color Doppler evaluation. FINDINGS: Examination demonstrates a single live intrauterine in breech presentation. motion is identified by technologist. Placenta is noted posterior and grade 1 without evidence for placenta previa or abruption. Amniotic fluid volume is normal. Cervix measures 3.1 cm in length and appears closed.. Gestational age by LMP 19 weeks 3 days with ELIS 11/26/2020. Gestational age by current measurements 19 weeks 5 days with ELIS 11/24/2020. FHR equals 144 beats per minute. BPD: 4.6 cm 19 weeks 5 days HC: 16.7 cm 19 weeks 3 days AC: 14.2 cm 19 weeks 4 days FL: 3.0 cm 19 weeks 2 days HL: 3.2 cm 20 weeks 3 days HC/AC: 1.17 Estimated weight 293 grams (47thpercentile). Anatomical assessment demonstrates normal structures including cranium, choroid plexus, cavum, cerebellum/posterior fossa, facial features, lungs, diaphragm, stomach, cord insertion/three-vessel cord, kidneys/bladder, spine, and extremities. IMPRESSION: Single live intrauterine in breech presentation demonstrating appropriate estimated weight and growth. Limited evaluation of the heart/ventricular outflow tracts noted. Remainder of the anatomical assessment is complete and normal. <Electronically signed by Chapin Hoang > 07/06/20 0413
== END ==
LOC: M WHC 11:39
PROVIDERS: ATTEND Advanced Practice Midwife
DX: Z36.9 Encounter for antenatal screening, unspecified (principal); Z3A.19 19 weeks gestation of pregnancy

== ENCOUNTER → 2020-08-02 | Outpatient (CLI) | payer OTHER ==
[~2020-08-02] MED LIST changes: +MULTTAB20 PO
== END ==
LOC: M LAB 08:08
PROVIDERS: ATTEND Advanced Practice Midwife
DX: O99.212 Obesity complicating pregnancy, second trimester (principal); Z3A.00 Weeks of gestation of pregnancy not specified

== ENCOUNTER → 2020-08-10 | Outpatient (CLI) | payer OTHER ==
--- NOTE | 2020-08-10 18:52 | REP ---
INDICATION: F/U ANATOMY COMPARISON: 07/05/2020 TECHNIQUE: Transabdominal obstetrical ultrasound with color Doppler evaluation. FINDINGS: Examination demonstrates a single live intrauterine in breech presentation. motion is identified by technologist. Placenta is noted posterior and grade 1 without evidence for placenta previa or abruption. Amniotic fluid volume is normal. Cervix measures 3.6 cm in length and appears closed.. Gestational age by LMP and 1st ultrasound 24 weeks 4 days with ELIS 11/26/2020. Gestational age by current measurements 25 weeks 0 days with ELIS 11/23/2020. FHR equals 147 beats per minute. Estimated weight 725 grams (46thpercentile). Anatomical assessment demonstrates normal structures including facial profile, heart/ventricular outflow tracts, diaphragm, stomach, abdominal wall, kidneys/bladder, spine and three-vessel cord.. IMPRESSION: 1. Single live intrauterine in breech presentation. 2. In conjunction with prior examination anatomical assessment is complete and normal. <Electronically signed by Chapin Hoang > 08/10/20 [id number]
== END ==
LOC: M WHC 15:55
PROVIDERS: ATTEND Advanced Practice Midwife
DX: Z34.92 Encounter for supervision of normal pregnancy, unspecified, second trimester (principal); Z3A.24 24 weeks gestation of pregnancy

== ENCOUNTER → 2020-10-31 | Outpatient (REF) | payer OTHER, MEDICAID | LOC: M SFHCWAGY 10:24 | PROVIDERS: ATTEND Advanced Practice Midwife | DX: Z36.89 Encounter for other specified antenatal screening (principal); Z3A.36 36 weeks gestation of pregnancy ==

== ENCOUNTER 2020-11-16 14:22 | Outpatient (CLI) | payer OTHER ==
[~2020-11-16] VITALS: Ht 167.6 cm; Wt 102.6 kg
[2020-11-16 14:36] VITALS: BP 133/84
[2020-11-16 14:56] VITALS: BP 136/83
[2020-11-16 15:16] VITALS: BP 132/80
[2020-11-16 15:36] VITALS: BP 126/75
[2020-11-16 15:48] LABS: HEMATOCRIT 31.6 % (36.0-47.0); HEMOGLOBIN 10.2 g/dl (12.0-15.5); MEAN CORPUSCULAR HEMOGLOBIN 28.3 pg (27.0-33.0); MEAN CORPUSCULAR HGB CONC 32.3 g/dl (32.0-36.5); MEAN CORPUSCULAR VOLUME 87.8 fl (80.0-96.0); PLATELET COUNT, AUTOMATED 270 10^3/uL (150-450); WHITE BLOOD COUNT 10.8 10^3/uL (4.0-10.0)
[2020-11-16 15:56] VITALS: BP 116/81
[2020-11-16 16:14] LABS: ALT/SGPT 13 U/L (12-78); BILIRUBIN,TOTAL 0.3 MG/DL (0.2-1.0); CREATININE FOR GFR 0.44 MG/DL (0.55-1.30); GLOMERULAR FILTRATION RATE > 60.0 (>60); LDH LACTATE DEHYDROGENASE 151 U/L (84-246); URIC ACID 3.8 MG/DL (2.6-6.0)
[2020-11-16 18:15] LABS: CREATININE,RANDOM URINE 42.9 MG/DL; TOTAL PROTEIN,RANDOM URINE 11.1 MG/DL (0.0-12.0)
--- NOTE | 2020-11-16 18:40 | IPNPDOC ---
Text Note Date of Service The patient was seen on 11/16/20. NOTE Outpatient 25yo ELIS 11/26/2020. Presents @ 38w4d from office after appt where multiple pressures were in severe range. Denies headache, visual disturbances, chest pain. Hx significant for GHTN in previous . Baseline PreE panel WNL, urine ratio 0.09. No distress. Denies pain or concerns Normotensive here on multiple readings, sitting and reclining. Cat I tracing. Rare UC. PreE panel WNL, urine ratio 0.26 Reviewed pt status with Dr Elias. Discharge home with instructions tonight Scheduled for IOL 11/18/2020 VS,Fishbone, I+O VS, Fishbone, I+O Laboratory Tests 11/16/20 15:38 Vital Signs Date Time Temp Pulse Resp B/P (MAP) Pulse Ox O2 Delivery O2 Flow Rate FiO2 11/16/20 15:56 75 116/81 (93) 11/16/20 14:36 98.6 18 Room Air Eugenia Casanova CNM Nov 16, 2020 18:40
== END 2020-11-16 18:40 | disposition home or self-care (01) ==
LOC: M LDO 14:22
PROVIDERS: ATTEND Advanced Practice Midwife
DX: O26.893 Other specified pregnancy related conditions, third trimester (principal); R03.0 Elevated blood-pressure reading, without diagnosis of hypertension; Z3A.38 38 weeks gestation of pregnancy
CPT/HCPCS: 36415; 59025; 82247; 82565; 82570; 83615; 84156; 84450; 84460; 84550; 85027; G0378; G0463

== ENCOUNTER 2020-11-19 07:03 | Inpatient (IN) | payer OTHER ==
[~2020-11-19] VITALS: Ht 167.6 cm; Wt 101.8 kg
[2020-11-19] VITALS (32 sets, daily range): BP systolic 92–142; BP diastolic 51–91
[2020-11-19] MEDS ORDERED: LACTATED RINGER'S 1000 ML IV STA (07:46)
[2020-11-19] MEDS ORDERED: PENICILLIN G POTASSIUM IV 5 MU in D5W MINI-BAG PLUS 100 ML IV STA ×2 (07:46→17:35)
[2020-11-19] MEDS ORDERED: CARBOPROST TROMETHAMINE 250 MCG/ML AMP IM PRN (07:50)
[2020-11-19] MEDS ORDERED: LIDOCAINE 1% MDV 20ML VIAL INFIL PRN (07:50)
[2020-11-19] MEDS ORDERED: TRANEXAMIC ACID INJection 1,000 MG in NS 100 ML IV PRN (07:50)
[2020-11-19] MEDS ORDERED: OXYTOCIN DRIP 30 UNITS in IV 1 EA IV PRN (07:50)
--- NOTE | 2020-11-19 08:30 | HPEPDOC ---
Obstetrical History & Physical General Date of Admission Nov 19, 2020 at 07:03 Primary Care Physician: SONALI RODRIGUEZ CNM History of Present Illness Ashanti is a 25-year-old female who is a at 39 weeks gestation with an ELIS of 11/26/20. She initiated care in her first trimester of with WW. Her has been complicated by a history of GHTN. She was seen in the office 3 days ago nand sent to L&D for monitoring due to having elevated BPs. She was discharged to home and put on for induction at 39 weeks gestation. She presents today without any complaints. She reports active movement. Denies leaking of fluid, vaginal bleeding or contractions. Chief Complaint: Induction of labor Information Provided By: Patient Age: 25 : 3 Term: 2 Pre-term: 0 Abortions: 0 Livin Care Care: Good Care Dating Final EDC: Nov 26, 2020 Final EDC by: 1st trimester (US) EGA at Admission: 39 Antepartum Course Diagnos(e)s Hx of GHTN, elevated BP in the office on 11/16/20. Height (inches): 66 Admission Weight (lbs.): 222 Past Medical History Past Obstetrical History #1: Past Obstetrical History: Primgravida Date of Delivery: Jun 12, 2016 Type of Delivery: Spontaneous Vaginal Del. Sex of : Female (6 lbs 6 oz) Complications: Yes (GHTN) Past Obstetrical History #2: Past Obstetrical History: Multigravida Date of Delivery: Nov 17, 2018 Gestation: 40 Type of Delivery: Spontaneous Vaginal Del. Sex of : Male (7 lbs 12 oz) Complications: Yes (GHTN) Past Medical History Medical History Pseudotumor Cerebri Surgical History: Other (lumbar shunt and ovarian cystectomy) Family History Significant Family History: Cancer, Diabetes, Hypertension Social History Social history [employer] Marital Status: Single Family situation: Spouse/partner home Psychosocial History: No pertinent psych hx * Smoker: non-smoker Alcohol: Denies Drugs: denies Abuse Violence Screening Have you been hit/kicked/slapp: No Have you been sexually assault: No Allergies Coded Allergies: No Known Allergies (Unverified , 10/28/18) Medications Scheduled No122/Iron/Folic Acid ( Multi Tablet) 1 Each Tablet, 1 TAB PO DAILY Physical Examination Physical Examination GENERAL: Alert and oriented times three. BREAST: . ABDOMEN: Gravid and non-tender to touch. FETUS: Is vertex (VTX) by sterile vaginal examination (SVE), fetus is vertex (VTX) by Jaspreet. LUNGS: Clear to auscultation (CTA). EXTREMITIES: No edema. No clonus. Deep tendon reflexes (DTRs) + 2. Laboratory Data 24H LABS Laboratory Tests 2 11/19/20 07:13: Serology Scanned Report Hepatitis B Testing Pertinent Laboratoy Data Blood Type: O+ RBC Antibody Screen: Negative HIV: Negative Hepatitis B: Negative Hepatitis C: Negative Rapid Plasma Reagin: Nonreactive Rubella: Immune Chlamydia/Gonorrhea: Negative Group B Streptococcus: Positive Glucose Tolerance Test: 151 Diag/Inter Therapy 3 hour GTT: 84, 150, 109, 46 Vaginal Examination Dilation: 2cm Effacement: 50% Station: -1 Cervical Consistency: Soft Cervical Position: Anterior Presentation: Cephalic presentation Assessment Heart Rate (FHR): 130 Variability: Moderate Accelerations: Positive Decelerations: None Tocometer Contractions: No Multi-drug resistant Organism: No history of MDRO Assessment/Plan Assessment IUP at 39 weeks gestation GBS positive Category I FHR tracing GHTN Plan Admit to L&D OOB ad la Diet: regular now then clear liquid with starting IV Pitocin. Group B Streptococcus (GBS) positive. Start antibiotics per order. Labs and intravenous (IV) per unit protocol. Counseled on Cytotec, iniguez bulb and IV Pitocin for induction of labor. Start Cytotec per order. Lactated Ringers (LR): Bolus 500 mL prior to epidural, then at 125 mL/hr. Anticipate cervical change and . C-S as appropriate. SONALI RODRIGUEZ CNM Nov 19, 2020 08:30
[2020-11-19 08:41] LABS: HEMATOCRIT 31.5 % (36.0-47.0); HEMOGLOBIN 10.5 g/dl (12.0-15.5); MEAN CORPUSCULAR HEMOGLOBIN 29.2 pg (27.0-33.0); MEAN CORPUSCULAR HGB CONC 33.3 g/dl (32.0-36.5); MEAN CORPUSCULAR VOLUME 87.5 fl (80.0-96.0); PLATELET COUNT, AUTOMATED 282 10^3/uL (150-450); WHITE BLOOD COUNT 11.9 10^3/uL (4.0-10.0)
[2020-11-19] MEDS: miSOPROStol 50MCG 1/2 TABLET PO SCH ×3 (09:02→17:06)
[2020-11-19 09:04] LABS: ALT/SGPT 15 U/L (12-78); BILIRUBIN,TOTAL 0.3 MG/DL (0.2-1.0); GLOMERULAR FILTRATION RATE > 60.0 (>60); LDH LACTATE DEHYDROGENASE 140 U/L (84-246); URIC ACID 3.9 MG/DL (2.6-6.0)
[2020-11-19] MEDS ORDERED: PENICILLIN G POTASSIUM IV 2.5 MU in IV 1 EA IV SCH (11:50)
--- NOTE | 2020-11-19 21:27 | IPNPDOC ---
Obstetrical Progress Note Date of Service Nov 19, 2020 Subjective Patient reports she is getting uncomfortable and feeling her contractions. Objective Vital Signs Date Time Temp Pulse Resp B/P (MAP) Pulse Ox O2 Delivery O2 Flow Rate FiO2 11/19/20 20:47 92 116/66 (83) 11/19/20 19:19 18 11/19/20 19:19 98.4 Assessment Heart Rate (FHR): 130 Variability: Moderate Accelerations: Positive Decelerations: None Heart Rate Tracing: Category I Tocometer Contractions: Yes Frequency: regular Sterile Vaginal Examination Dilation: 4 cm Effacement (%): other (75%) Station: -1 Cervical Consistency: Soft Cervical Position: Anterior Postion/Presentation: Cephalic presentation Assessment and Plan Age: 25 : 3 Term: 2 Pre-term: 2 Abortions: 0 Livin EGA at Admission: 39 Status: Reassuring Group B Streptococcus: Positive Anticipate: Vaginal Delivery Additional Comments Patient desires epidural. Anesthesia to be notified. IV Pitocin ordered and to be started after epidural. SONALI RODRIGUEZ CNM Nov 19, 2020 21:26
[2020-11-19] MEDS ORDERED: OXYTOCIN DRIP 30 UNITS in IV 1 EA IV SCH (21:30)
[2020-11-19] MEDS ORDERED: FENTANYL 2MCG/ML ROPIVACAINE 0.2% IN 0.9% NACL 100ML IVBAG As Ordered ONE (21:32)
[2020-11-19] MEDS: PENICILLIN G POTASSIUM IV 2.5 MU in IV 1 EA IV SCH (22:04)
[2020-11-19] MEDS: LR 1,000 ML IV SCH (22:05)
[2020-11-19] MEDS ORDERED: REFRIGERATOR IV KEYS XX PRN (22:40)
[2020-11-19] MEDS ORDERED: diphenhydrAMINE 50MG/ML VIAL (J1200) IV PRN (22:40)
[2020-11-19] MEDS ORDERED: EPIDURAL COMMENT XX SCH (22:40)
[2020-11-19] MEDS ORDERED: LACTATED RINGER'S 1000 ML IV PRN (22:40)
[2020-11-19] MEDS ORDERED: EPIDURAL/PCA KEYS XX PRN (22:40)
[2020-11-19] MEDS ORDERED: FENTANYL/ROPIVACAINE/NACL BAG 100 ML EPIDURAL SCH (22:40)
[2020-11-19] MEDS ORDERED: NALOXONE INJ 0.4MG/1ML VIAL (J2310 PER 1MG) IV PRN (22:40)
[2020-11-19] MEDS ORDERED: ONDANSETRON 4MG/2ML VIAL IV PRN (22:40)
[2020-11-20] VITALS (39 sets, daily range): BP systolic 85–141; BP diastolic 47–90
[2020-11-20] MEDS: ePHEDrine SULFATE 25 MG/5 ML(5MG/ML) SYRINGE IV PRN ×2 (01:01→01:04)
[2020-11-20] MEDS: PENICILLIN G POTASSIUM IV 2.5 MU in IV 1 EA IV SCH ×2 (02:02→06:04)
--- NOTE | 2020-11-20 05:48 | IPNPDOC ---
Obstetrical Progress Note Date of Service Nov 20, 2020 Subjective Patient reports she is comfortable with her epidural. Objective Vital Signs Date Time Temp Pulse Resp B/P (MAP) Pulse Ox O2 Delivery O2 Flow Rate FiO2 11/20/20 05:27 85 111/70 (84) 11/20/20 04:42 97.7 18 Assessment Heart Rate (FHR): 125 Variability: Moderate Accelerations: Positive Decelerations: None Heart Rate Tracing: Category I Tocometer Contractions: Yes Frequency: regular Sterile Vaginal Examination Dilation: 5 cm Effacement (%): other (75%) Station: -1 Cervical Consistency: Soft Cervical Position: Anterior Postion/Presentation: Cephalic presentation Assessment and Plan Age: 25 : 3 Term: 2 Pre-term: 0 Abortions: 0 Livin EGA at Admission: 39 Weeks & Days 39.1 weeks currently Status: Reassuring Group B Streptococcus: Positive Anticipate: Vaginal Delivery Additional Comments IV Pitocin at 18 mu/min. With cervical exam her membranes spontaneously ruptured with clear fluid. SONALI RODRIGUEZ CNM Nov 20, 2020 05:48
[2020-11-20] MEDS: LR 1,000 ML IV SCH (06:04)
--- NOTE | 2020-11-20 07:00 | IPNPDOC ---
Obstetrical Progress Note Date of Service Nov 20, 2020 Subjective Feeling pressure. Objective Vital Signs Date Time Temp Pulse Resp B/P (MAP) Pulse Ox O2 Delivery O2 Flow Rate FiO2 11/20/20 06:28 98.0 59 102/58 (73) 11/20/20 04:42 18 Assessment Heart Rate (FHR): 120 Variability: Moderate Accelerations: Positive Decelerations: Early, Variable Heart Rate Tracing: Category II Tocometer Contractions: Yes Frequency: regular Sterile Vaginal Examination Dilation: 7 cm Effacement (%): 80% Station: -1 Cervical Consistency: Soft Cervical Position: Anterior Postion/Presentation: Cephalic presentation Assessment and Plan Age: 25 EGA at Admission: 39.1 Status: Reassuring Group B Streptococcus: Positive Anticipate: Vaginal Delivery Additional Comments Patient to reposition as she is on her back. Given her epidural button to help with any pain. IV Pitocin is at 18 mu/min. SONALI RODRIGUEZ CNM Nov 20, 2020 07:00
[2020-11-20 08:05] LABS: CORD GAS HCO3 V 20.3 MEQ/L; CORD GAS O2 SAT V 77.5 %; CORD GAS PCO2 V 39.1 mmHg; CORD GAS PH V 7.334 UNITS; CORD GAS PO2 V 32.4 mmHg; CORD GAS SBC V 19.9 MEQ/L; CORD GAS TCO2 V 21.5 MEQ/L
[2020-11-20] MEDS ORDERED: ANUSOL HC CREAM 30GM TOP PRN (08:20)
[2020-11-20] MEDS ORDERED: ACETAMINOPHEN TAB 650MG DOSE (2X325MG) PO PRN (08:20)
[2020-11-20] MEDS ORDERED: IBUPROFEN 600MG TAB PO PRN (08:20)
[2020-11-20] MEDS ORDERED: MEASLES,MUMPS,RUBELLA VACCINE INJ (MMR-II) (90707) SC SCH (08:20)
[2020-11-20] MEDS ORDERED: DIBUCAINE 1% OINTMENT 30GM TOP PRN (08:20)
[2020-11-20] MEDS ORDERED: RHOGAM 300 MCG (1500 IU) INJ (J2790) IM SCH (08:20)
[2020-11-20] MEDS ORDERED: METHYLERGONOVINE MALEATE 0.2 MG TAB PO PRN (08:20)
[2020-11-20] MEDS ORDERED: DOCUSATE SODIUM 100MG CAPSULE PO PRN (08:20)
--- NOTE | 2020-11-20 08:42 | DNPDOC ---
[facility] Delivery Note Delivery Note DATE OF DELIVERY: 11/20/20 at 0719 PREDELIVERY DIAGNOSIS: 39 weeks' gestation and induction of labor. POST DELIVERY DIAGNOSIS: Delivered. PROCEDURE: Spontaneous vaginal delivery. UTILITY LOCATE TECHNICIAN: Sonali Jarrett CNM, SHOA[facility] ANESTHESIA: epidural ESTIMATED BLOOD LOSS: 350 mL. FINDINGS: 6 pounds 9 ounces; 2990 grams; male , Score 9/9, GHTN. DELIVERY SUMMARY: Ashanti is a 25-year-old female who is now a who was induced for GHTN. She received 3 doses of Cytotec and IV Pitocin. She requested an epidural for pain management. The patient progressed to fully dilated at 0713 and pushed to a living male in the OA position with restitution to ROT. The anterior shoulder delivered with ease and the corpus immediately followed. The baby was placed on the maternal abdomen [id number], active and crying. The cord was clamped x2 after 2 minutes and cut by the FOB. The placenta delivered spontaneously and intact at 0723. Uterine hemostasis was achieved via rapid infusion of IV Pitocin and fundal massage. The perineum, cervix and vagina was inspected and found to have a right labial laceration that was repaired with a 4.0 Vicryl Rapid RB-1 for hemostasis. Mom plans to breastfeed. Both mother and are in stable condition. All counts of instruments and tools are correct. SONALI JARRETT CNM Nov 20, 2020 08:42
[2020-11-20] MEDS: PRENATAL VITAMINS CHEWABLE TABLET PO SCH (11:03)
[2020-11-20] MEDS ORDERED: SLF 3 ML SYR IV PRN (11:25)
[2020-11-20] MEDS: IBUPROFEN 800 MG TAB PO PRN ×2 (12:24→20:26)
[2020-11-20] MEDS: SLF 3 ML SYR IV SCH ×2 (12:25→20:30)
[2020-11-20] MEDS: ACETAMINOPHEN 500 MG TAB PO PRN (20:08)
[2020-11-21 02:00] VITALS: BP 115/65
[2020-11-21] MEDS: ACETAMINOPHEN 500 MG TAB PO PRN (03:50)
[2020-11-21] MEDS: SLF 3 ML SYR IV SCH (03:50)
[2020-11-21] MEDS: IBUPROFEN 800 MG TAB PO PRN (04:34)
[2020-11-21 06:00] VITALS: BP 112/57
--- NOTE | 2020-11-21 06:37 | IPNPDOC ---
Progress Note Date of Service: Nov 21, 2020 Day#: 1 Progress Note PPD 1 SUBJECT: Ashanti is a 25yo [id number] s/p uncomplicated after undergoing IOL for GHTN, doing well day # 1. She has been ambulating, voiding spontaneously without issue and tolerating regular diet. Breast feeding without issue. Reports lochia is like a normal period. No f/c/n/v/CP/SOB/ALONZO/vision changes/RUQ pain. OBJECTIVE: VITAL SIGNS: Within normal limits, afebrile. Alert and oriented times three. Abdomen: Fundus firm at U-2. Soft, NTTP. Extremities: no pain with palpation of calves ASSESSMENT: Ashanti is a 25yo [id number] s/p uncomplicated after undergoing IOL for GHTN, doing well day # 1. Vitals within normal limits, afebrile, hemodynamically stable with no evidence of infection. PLAN: 1. Discharge to home today. 2. Tylenol and Motrin for pain. 3. Encourage breast feeding and ambulation. 4. Interested in BTL for contraception, will address at 6wk PP visit 5. Routine PP visit in 6 weeks in clinic. 6. Discussed return precautions at length. Maren Elias MD VS, I&O, 24H, [facility] Vital Signs/I&O Vital Signs Date Time Temp Pulse Resp B/P (MAP) Pulse Ox O2 Delivery O2 Flow Rate FiO2 11/21/20 02:00 98.2 65 18 115/65 (82) 97 Room Air I&O- Last 24 Hours up to 6 AM 11/21/20 06:00 Intake Total 1836 ml Output Total 850 ml Balance 986 ml Laboratory Data 24H LABS Laboratory Tests 2 11/20/20 07:40: Cord Venous Blood pH 7.334, Cord Venous Blood PCO2 39.1, Cord Venous Blood PO2 32.4, Cord Venous Blood HCO3 20.3, Cord Venous Blood Total CO2 21.5, Cord Venous Base Excess (Actual) -5.0, Cord Venous Base Excess (Standard) 19.9, Cord Venous Blood Oxygen Saturation 77.5 Maren Elias MD Nov 21, 2020 06:37
[2020-11-21] MEDS ORDERED: IBUP80TA PO (06:38)
[2020-11-21] MEDS ORDERED: DOK1CAP7 PO (06:38)
[2020-11-21] MEDS ORDERED: ACET1TAB55 PO (06:38)
--- NOTE | 2020-11-21 06:41 | DS.PDOC ---
Discharge Summary General Date of Admission Nov 19, 2020 at 07:03 Date of Discharge Nov 21, 2020 Discharge Summary PROCEDURES PERFORMED DURING STAY: spontaneous vaginal delivery ADMITTING DIAGNOSES: 1. Term SIUP with GHTN DISCHARGE DIAGNOSES: 1. Term SIUP with GHTN, delivered COMPLICATIONS/CHIEF COMPLAINT: IOL. HISTORY OF PRESENT ILLNESS/HOSPITAL COURSE: Ashanti is a 25yo [id number] s/p uncomplicated after undergoing IOL for GHTN, doing well day # 1. She had a benign course. AT time of discharge, vitals were within normal limits, she was afebrile, hemodynamically stable with no evidence of infection. DISCHARGE MEDICATIONS: Please see below. ALLERGIES: Please see below. PHYSICAL EXAMINATION ON DISCHARGE: VITAL SIGNS: Within normal limits, afebrile. Alert and oriented times three. Abdomen: Fundus firm at U-2. Soft, NTTP. Extremities: no pain with palpation of calves LABORATORY DATA: Please see below. DISCHARGE PLAN/INSTRUCTIONS: 1. Discharge to home today. 2. Tylenol and Motrin for pain. 3. Encourage breast feeding and ambulation. 4. Interested in BTL for contraception, will address at 6wk PP visit 5. Routine PP visit in 6 weeks in clinic. 6. Discussed return precautions at length. DISCHARGE CONDITION: Stable TIME SPENT ON DISCHARGE: Greater than 20 minutes. Vital Signs/I&Os Vital Signs Date Time Temp Pulse Resp B/P (MAP) Pulse Ox O2 Delivery O2 Flow Rate FiO2 11/21/20 02:00 98.2 65 18 115/65 (82) 97 Room Air I&O- Last 24 Hours up to 6 AM 11/21/20 06:00 Intake Total 1836 ml Output Total 850 ml Balance 986 ml Laboratory Data Labs 24H Laboratory Tests 2 11/20/20 07:40: Cord Venous Blood pH 7.334, Cord Venous Blood PCO2 39.1, Cord Venous Blood PO2 32.4, Cord Venous Blood HCO3 20.3, Cord Venous Blood Total CO2 21.5, Cord Venous Base Excess (Actual) -5.0, Cord Venous Base Excess (Standard) 19.9, Cord Venous Blood Oxygen Saturation 77.5 Discharge Medications Scheduled No122/Iron/Folic Acid ( Multi Tablet) 1 Each Tablet, 1 TAB PO DAILY, (Reported) Scheduled PRN Acetaminophen (Acetaminophen) 325 Mg Tablet, 650 MG PO Q4HP PRN for PAIN LEVEL 1-5 Docusate Sodium (Dok) 100 Mg Capsule, 100 MG PO BIDP PRN for CONSTIPATION Ibuprofen (Ibuprofen) 800 Mg Tablet, 800 MG PO Q8HP PRN for PAIN LEVEL 6-10 Allergies Coded Allergies: No Known Allergies (Unverified , 10/28/18) Maren Elias MD Nov 21, 2020 06:41
[2020-11-21] MEDS: PRENATAL VITAMINS CHEWABLE TABLET PO SCH (08:44)
== END 2020-11-21 14:00 | disposition home or self-care (01) | DRG 807 ==
LOC: M LDI 07:03 → M OBS 11-20 10:28
PROVIDERS: ADMIT Advanced Practice Midwife; ATTEND Advanced Practice Midwife
PROC: 3E033VJ Introduction of Other Hormone into Peripheral Vein, Percutaneous Approach (ICD-10-PCS; 2020-11-19)
PROC: 10E0XZZ Delivery of Products of Conception, External Approach (ICD-10-PCS; principal; 2020-11-20)
PROC: 0HQ9XZZ Repair Perineum Skin, External Approach (ICD-10-PCS; 2020-11-20)
DX: O13.4 Gestational [pregnancy-induced] hypertension without significant proteinuria, complicating childbirth (principal); Z37.0 Single live birth; Z3A.39 39 weeks gestation of pregnancy; O99.824 Streptococcus B carrier state complicating childbirth; O70.0 First degree perineal laceration during delivery

== ENCOUNTER 2021-05-26 16:34 | Emergency (ER) | payer OTHER, MEDICAID ==
[~2021-05-26] VITALS: Ht 167.6 cm; Wt 90.9 kg
[~2021-05-26 16:34] MED LIST changes: +ACET1TAB55 PO; +DOK1CAP4 PO
[2021-05-26 16:55] VITALS: BP 150/99
== END 2021-05-26 17:35 | disposition left against medical advice (07) ==
LOC: M ED 16:34
DX: Z53.21 Procedure and treatment not carried out due to patient leaving prior to being seen by health care provider (principal)

== ENCOUNTER → 2021-06-03 | Outpatient (CLI) | payer OTHER, MEDICAID | LOC: M PLALAB 13:51 | PROVIDERS: ATTEND Advanced Practice Midwife | DX: O03.9 Complete or unspecified spontaneous abortion without complication (principal) ==

== ENCOUNTER → 2021-12-05 | Outpatient (CLI) | payer OTHER, MEDICAID ==
[2021-12-05 16:34] LABS: HEMATOCRIT 33.1 % (36.0-47.0); HEMOGLOBIN 11.6 g/dl (12.0-15.5); MEAN CORPUSCULAR HEMOGLOBIN 30.5 pg (27.0-33.0); MEAN CORPUSCULAR VOLUME 87.1 fl (80.0-96.0); PLATELET COUNT, AUTOMATED 292 10^3/uL (150-450); WHITE BLOOD COUNT 10.5 10^3/uL (4.0-10.0)
[2021-12-05 17:59] LABS: HEPATITIS C VIRUS ABY INDEX 0.1 INDEX (<0.8); HIV 1&2 SCREEN CENTAUR NEGATIVE (NEGATIVE)
[2021-12-05 18:31] LABS: GC DNA AMPLIFICATION NEGATIVE (NEGATIVE)
== END ==
LOC: M LAB 15:37
PROVIDERS: ATTEND Obstetrics & Gynecology
DX: Z34.80 Encounter for supervision of other normal pregnancy, unspecified trimester (principal); Z3A.00 Weeks of gestation of pregnancy not specified

== ENCOUNTER → 2021-12-26 | Outpatient (CLI) | payer OTHER, MEDICAID | LOC: M WHC 13:03 | PROVIDERS: ATTEND Advanced Practice Midwife | DX: O99.212 Obesity complicating pregnancy, second trimester (principal); Z3A.20 20 weeks gestation of pregnancy ==

== ENCOUNTER → 2022-01-16 | Outpatient (CLI) | payer OTHER, MEDICAID | LOC: M WHC 13:09 | PROVIDERS: ATTEND Advanced Practice Midwife | DX: O99.212 Obesity complicating pregnancy, second trimester (principal); Z36.89 Encounter for other specified antenatal screening; Z3A.24 24 weeks gestation of pregnancy ==

== ENCOUNTER → 2022-02-14 | Outpatient (CLI) | payer OTHER, MEDICAID | LOC: M WHC 10:47 | PROVIDERS: ATTEND Advanced Practice Midwife | DX: O99.212 Obesity complicating pregnancy, second trimester (principal); Z3A.27 27 weeks gestation of pregnancy ==

== ENCOUNTER → 2022-02-28 | Outpatient (REF) | payer OTHER, MEDICAID | LOC: M SFHCWAGY 08:31 | PROVIDERS: ATTEND Obstetrics & Gynecology | DX: Z12.4 Encounter for screening for malignant neoplasm of cervix (principal); Z77.9 Other contact with and (suspected) exposures hazardous to health; R87.612 Low grade squamous intraepithelial lesion on cytologic smear of cervix (LGSIL) ==

== ENCOUNTER → 2022-03-10 | Outpatient (CLI) | payer OTHER, MEDICAID ==
[2022-03-10 14:39] LABS: HEMOGLOBIN 10.4 g/dl (12.0-15.5); MEAN CORPUSCULAR HEMOGLOBIN 28.9 pg (27.0-33.0); MEAN CORPUSCULAR HGB CONC 31.5 g/dl (32.0-36.5); MEAN CORPUSCULAR VOLUME 91.7 fl (80.0-96.0); PLATELET COUNT, AUTOMATED 278 10^3/uL (150-450); WHITE BLOOD COUNT 8.1 10^3/uL (4.0-10.0)
== END ==
LOC: M LAB 12:07
PROVIDERS: ATTEND Advanced Practice Midwife
DX: O99.212 Obesity complicating pregnancy, second trimester (principal); E66.9 Obesity, unspecified

== ENCOUNTER → 2022-03-13 | Outpatient (CLI) | payer OTHER, MEDICAID | LOC: M WHC 11:59 | PROVIDERS: ATTEND Advanced Practice Midwife | DX: O99.213 Obesity complicating pregnancy, third trimester (principal); E66.9 Obesity, unspecified; Z3A.33 33 weeks gestation of pregnancy ==

== ENCOUNTER → 2022-04-18 | Outpatient (REF) | payer OTHER, MEDICAID | LOC: M PLALAB 11:54 | PROVIDERS: ATTEND Advanced Practice Midwife | DX: O99.213 Obesity complicating pregnancy, third trimester (principal) ==

== ENCOUNTER 2022-05-06 16:03 | Inpatient (IN) | payer OTHER, MEDICAID ==
[~2022-05-06] VITALS: Ht 167.6 cm; Wt 99.2 kg
[2022-05-06 16:19] VITALS: BP 132/85
[2022-05-06] MEDS ORDERED: CARBOPROST TROMETHAMINE 250 MCG/ML AMP IM PRN (16:35)
[2022-05-06] MEDS ORDERED: LIDOCAINE 1% MDV 20ML VIAL INFIL PRN (16:35)
[2022-05-06] MEDS ORDERED: LR 1,000 ML IV SCH ×2 (16:35→23:50)
[2022-05-06] MEDS ORDERED: TRANEXAMIC ACID INJection 1,000 MG in NS 100 ML IV PRN (16:35)
[2022-05-06] MEDS ORDERED: HOME MED LIST COMPLETE! XX SCH (16:35)
[2022-05-06] MEDS ORDERED: LACTATED RINGER'S 1000 ML IV STA (16:35)
[2022-05-06] MEDS ORDERED: METHYLERGONOVINE MALEATE 0.2 MG/ML VIAL (J2210) IM PRN (16:35)
[2022-05-06 16:58] VITALS: BP 126/86
[2022-05-06 17:10] LABS: HEMOGLOBIN 10.9 g/dl (12.0-15.5); MEAN CORPUSCULAR HEMOGLOBIN 28.2 pg (27.0-33.0); MEAN CORPUSCULAR VOLUME 85.5 fl (80.0-96.0); PLATELET COUNT, AUTOMATED 261 10^3/uL (150-450); RED BLOOD COUNT 3.86 10^6/uL (4.00-5.40); WHITE BLOOD COUNT 9.5 10^3/uL (4.0-10.0)
[2022-05-06 18:08] VITALS: BP 109/68
[2022-05-06] MEDS ORDERED: ONDANSETRON 4MG 2ML VIAL IV PRN ×2 (18:35→23:50)
[2022-05-06] MEDS ORDERED: diphenhydrAMINE 50MG/ML VIAL IV PRN (18:35)
[2022-05-06] MEDS ORDERED: EPIDURAL/PCA KEYS XX PRN (18:35)
[2022-05-06] MEDS ORDERED: ePHEDrine SULFATE 25 MG/5 ML(5MG/ML) SYRINGE IVP PRN (18:35)
[2022-05-06] MEDS ORDERED: FENTANYL/ROPIVACAINE/NACL BAG 100 ML EPIDURAL SCH (18:35)
[2022-05-06] MEDS ORDERED: NALOXONE INJ 0.4MG/1ML VIAL IV PRN (18:35)
[2022-05-06] MEDS ORDERED: LR 500 ML IV PRN (18:35)
[2022-05-06 18:48] VITALS: BP 139/93
[2022-05-06 18:56] VITALS: BP 133/88
[2022-05-06 19:00] VITALS: BP 132/82
[2022-05-06] MEDS ORDERED: OXYTOCIN 30 UNITS IN 0.9% NaCl 500ML IV BAG (J2590) As Ordered ONE (19:28)
[2022-05-06] MEDS ORDERED: DOCUSATE SODIUM 100MG CAPSULE PO PRN (23:50)
[2022-05-06] MEDS ORDERED: OXYTOCIN DRIP 30 UNITS in IV 1 EA IV SCH (23:50)
[2022-05-06] MEDS ORDERED: IBUPROFEN 600MG TAB PO PRN (23:50)
[2022-05-06] MEDS ORDERED: METHYLERGONOVINE MALEATE 0.2 MG TAB PO PRN (23:50)
[2022-05-06] MEDS ORDERED: ACETAMINOPHEN TAB 650MG DOSE (2X325MG) PO PRN (23:50)
[2022-05-06] MEDS ORDERED: DIBUCAINE 1% OINTMENT 30GM TOP PRN (23:50)
[2022-05-06] MEDS ORDERED: RHOGAM 300 MCG (1500 IU) INJ (J2790) IM SCH (23:50)
[2022-05-07 01:51] VITALS: BP 121/68
[2022-05-07 06:00] VITALS: BP 100/57
[2022-05-07] MEDS: PRENATAL VITAMINS CHEWABLE TABLET PO SCH (08:46)
[2022-05-07] MEDS: IBUPROFEN 800 MG TAB PO PRN (17:40)
[2022-05-07 18:00] VITALS: BP 125/75
[2022-05-07] MEDS: ACETAMINOPHEN 500 MG TAB PO PRN (21:31)
[2022-05-08] MEDS: IBUPROFEN 800 MG TAB PO PRN (04:13)
[2022-05-08 06:00] VITALS: BP 116/67
[2022-05-08] MEDS ORDERED: MEASLES,MUMPS,RUBELLA VACCINE INJ (MMR-II) (90707) SC.IMMUN ONE (09:00)
[2022-05-08] MEDS: PRENATAL VITAMINS CHEWABLE TABLET PO SCH (09:07)
[2022-05-08] MEDS: ACETAMINOPHEN 500 MG TAB PO PRN (09:08)
== END 2022-05-08 11:20 | disposition home or self-care (01) | DRG 807 ==
LOC: M LDO 16:03 → M LDI 16:35 → M OBS 05-07 01:49
PROVIDERS: ADMIT Obstetrics & Gynecology; ATTEND Obstetrics & Gynecology
PROC: 10E0XZZ Delivery of Products of Conception, External Approach (ICD-10-PCS; principal; 2022-05-06)
DX: O80 Encounter for full-term uncomplicated delivery (principal); Z37.0 Single live birth; Z3A.38 38 weeks gestation of pregnancy

== ENCOUNTER → 2022-08-29 | Outpatient (REF) | payer OTHER, MEDICAID | LOC: M SFHCWAGY 10:11 | PROVIDERS: ATTEND Obstetrics & Gynecology | DX: Z12.4 Encounter for screening for malignant neoplasm of cervix (principal) | CPT/HCPCS: 87624; G0123 ==

== ENCOUNTER → 2023-07-30 | Outpatient (CLI) | payer BC | LOC: M WUC 09:42 | PROVIDERS: ATTEND Physician Assistant | DX: N20.0 Calculus of kidney (principal) ==

== ENCOUNTER → 2023-09-25 | Outpatient (CLI) | payer BC ==
[~2023-09-25] MED LIST changes: +ACET250T18; -ACET250T2
== END ==
LOC: M WHC 15:33
PROVIDERS: ATTEND Obstetrics & Gynecology
DX: N91.1 Secondary amenorrhea (principal); N88.8 Other specified noninflammatory disorders of cervix uteri; N83.201 Unspecified ovarian cyst, right side; N83.202 Unspecified ovarian cyst, left side; R93.89 Abnormal findings on diagnostic imaging of other specified body structures

== ENCOUNTER → 2023-10-08 | Outpatient (CLI) | payer BC ==
[2023-10-08 12:38] LABS: HCG, SERUM QUANTITATIVE < 2.6 MIU/ML (<4.2)
[2023-10-08 12:42] LABS: THYROID STIMULATING HORMONE 1.462 uIU/ML (0.55-4.78)
[2023-10-08 12:43] LABS: ESTRADIOL 56.2 PG/ML; FOLLICLE STIMULATING HORMONE 8.7 mIU/ML; LUTEINIZING HORMONE 6.1 mIU/ML
[2023-10-08 12:44] LABS: PROLACTIN 4.51 NG/ML
[2023-10-09 08:12] LABS: TESTOSTERONE FREE (DIRECT) 1.8 pg/mL (0.0-4.2)
== END ==
LOC: M LAB 11:23
PROVIDERS: ATTEND Obstetrics & Gynecology
DX: N91.1 Secondary amenorrhea (principal)

== ENCOUNTER → 2024-01-13 | Outpatient (REF) | LOC: M EMP 11:06 | PROVIDERS: ATTEND Family Medicine | DX: Z11.52 Encounter for screening for COVID-19 (principal) ==

== ENCOUNTER → 2024-03-30 | Outpatient (CLI) | payer BC ==
[2024-03-30 16:57] LABS: BASO # 0.1 10^3/uL (0.0-0.2); BASO % 0.5 % (0.0-1.0); EOS # 0.3 10^3/uL (0.0-0.5); EOS % 2.9 % (0.0-3.0); HEMATOCRIT 34.9 % (36.0-47.0); HEMOGLOBIN 11.8 g/dl (12.0-15.5); LYMPH # 3.1 10^3/uL (1.5-5.0); LYMPH % 28.2 % (24.0-44.0); MEAN CORPUSCULAR HEMOGLOBIN 29.9 pg (27.0-33.0); MEAN CORPUSCULAR HGB CONC 33.8 g/dl (32.0-36.5); MEAN CORPUSCULAR VOLUME 88.4 fl (80.0-96.0); MONO # 0.7 10^3/uL (0.0-0.8); MONO % 6.4 % (2.0-8.0); NEUTROPHILS # 6.8 10^3/uL (1.5-8.5); NEUTROPHILS % 61.5 % (36.0-66.0); PLATELET COUNT, AUTOMATED 310 10^3/uL (150-450); RED BLOOD COUNT 3.95 10^6/uL (4.00-5.40)
[2024-03-30 17:41] LABS: ALBUMIN 3.1 G/DL (3.2-5.2); ALKALINE PHOSPHATASE 41 U/L (35-104); ALT/SGPT 23 U/L (7.0-40); AST/SGOT 17 U/L (<34); BILIRUBIN,TOTAL 0.2 MG/DL (0.3-1.2); BLOOD UREA NITROGEN 9 MG/DL (9-23); CALCIUM LEVEL 9.5 MG/DL (8.5-10.1); CARBON DIOXIDE LEVEL 27 MMOL/L (20-31); CHLORIDE LEVEL 109 MMOL/L (98-107); CHOLESTEROL LEVEL 161 MG/DL (<200); CHOLESTEROL RISK RATIO 4.17 (<5); CREATININE FOR GFR 0.57 MG/DL (0.55-1.30); GLOMERULAR FILTRATION RATE > 60.0 (>60); GLUCOSE, FASTING 87 MG/DL (60-100); HDL CHOLESTEROL 38.6 MG/DL (>40); LDL CHOLESTEROL 90.6 MG/DL (<100); NON-HDL-C 122.4 MG/DL; POTASSIUM SERUM 4.2 MMOL/L (3.5-5.1); SODIUM LEVEL 138 MMOL/L (136-145); TOTAL PROTEIN 6.7 G/DL (5.7-8.2); TRIGLYCERIDES LEVEL 159 MG/DL (<150)
[2024-03-30 17:44] LABS: THYROID STIMULATING HORMONE 1.756 uIU/ML (0.55-4.78); TOTAL 25(OH) VITAMIN D 14.4 NG/ML (20.0-100.0)
[2024-03-30 18:30] LABS: HEMOGLOBIN A1c 5.2 % (4.0-6.0)
== END ==
LOC: M LAB 16:13
PROVIDERS: ATTEND Nurse Practitioner Family
DX: Z11.9 Encounter for screening for infectious and parasitic diseases, unspecified (principal)

== ENCOUNTER 2024-05-02 04:15 | Day surgery (SDC) | payer BC ==
[~2024-05-02] VITALS: Ht 167.6 cm; Wt 98.2 kg
[2024-05-02] MEDS ORDERED: MISO200T83 (04:22)
[2024-05-02] MEDS ORDERED: OXYC-517 (04:22)
[2024-05-02 05:28] LABS: BASO % 0.3 % (0.0-1.0); EOS # 0.2 10^3/uL (0.0-0.5); EOS % 1.9 % (0.0-3.0); HEMATOCRIT 32.6 % (36.0-47.0); LYMPH # 1.7 10^3/uL (1.5-5.0); LYMPH % 15.8 % (24.0-44.0); MEAN CORPUSCULAR HGB CONC 33.7 g/dl (32.0-36.5); MEAN CORPUSCULAR VOLUME 88.8 fl (80.0-96.0); MONO # 0.7 10^3/uL (0.0-0.8); MONO % 6.2 % (2.0-8.0); NEUTROPHILS # 8.1 10^3/uL (1.5-8.5); NEUTROPHILS % 75.5 % (36.0-66.0); PLATELET COUNT, AUTOMATED 255 10^3/uL (150-450); RED BLOOD COUNT 3.67 10^6/uL (4.00-5.40); WHITE BLOOD COUNT 10.7 10^3/uL (4.0-10.0)
[2024-05-02 06:00] LABS: BLOOD UREA NITROGEN 7 MG/DL (9-23); CALCIUM LEVEL 8.8 MG/DL (8.5-10.1); CARBON DIOXIDE LEVEL 22 MMOL/L (20-31); CHLORIDE LEVEL 107 MMOL/L (98-107); CREATININE FOR GFR 0.53 MG/DL (0.55-1.30); GLOMERULAR FILTRATION RATE > 60.0 (>60); GLUCOSE, FASTING 115 MG/DL (60-100); POTASSIUM SERUM 3.8 MMOL/L (3.5-5.1); SODIUM LEVEL 141 MMOL/L (136-145)
[2024-05-02] MEDS: ONDANSETRON 4MG 2ML VIAL IV ONE (07:05)
[2024-05-02] MEDS: MORPHINE 2 MG/ML 1ML VIAL IV ONE (07:05)
[2024-05-02 07:51] LABS: HEMATOCRIT 31.1 % (36.0-47.0); HEMOGLOBIN 10.5 g/dl (12.0-15.5)
[2024-05-02] MEDS ORDERED: KETOROLAC 60MG 2ML VIAL As Ordered ONE (09:37)
[2024-05-02] MEDS ORDERED: ROCURONIUM BROMIDE 50MG/5ML VIAL As Ordered ONE (09:37)
[2024-05-02] MEDS ORDERED: propofoL 200 MG/20 ML VIAL As Ordered ONE (09:37)
[2024-05-02] MEDS ORDERED: LIDOCAINE 2% 100MG/5ML SDV (FOR ANES.) As Ordered ONE (09:37)
[2024-05-02] MEDS ORDERED: SUGAMMADEX SODIUM 500 MG/5 ML VIAL (BRIDION) As Ordered ONE (09:37)
[2024-05-02] MEDS ORDERED: MIDAZOLAM INJ 2MG/2ML VIAL As Ordered ONE (09:37)
[2024-05-02] MEDS ORDERED: ONDANSETRON 4MG 2ML VIAL As Ordered ONE (09:37)
[2024-05-02] MEDS ORDERED: fentaNYL 100 MCG/2 ML INJECTION As Ordered ONE (09:37)
[2024-05-02] MEDS ORDERED: ACETAMINOPHEN 1000MG/100ML IV BAG As Ordered ONE (09:37)
[2024-05-02] MEDS: METHYLERGONOVINE MALEATE 0.2MG/ML 1ML VIAL As Ordered ONE (10:26)
[2024-05-02] MEDS: LIDOCAINE 1% SDV 30ML VIAL As Ordered ONE (10:26)
[2024-05-02] MEDS ORDERED: oxyCODONE 5MG TAB PO PRN (10:50)
[2024-05-02] MEDS ORDERED: HYDROMORPHONE HCL 0.5 MG/ 0.5 ML SYRINGE IV PRN (10:50)
[2024-05-02] MEDS ORDERED: fentaNYL 100 MCG/2 ML INJECTION IV PRN (10:50)
[2024-05-02] MEDS ORDERED: ONDANSETRON 4MG 2ML VIAL IV PRN (10:50)
[2024-05-02] MEDS: DOXYCYCLINE HYCLATE 100MG TABLET PO ONE (11:33)
[2024-05-02 12:50] VITALS: BP 120/72; TEMP 97; O2SAT 97
[2024-05-02] MEDS ORDERED: HOME MED LIST COMPLETE! XX SCH (16:35)
== END 2024-05-02 13:02 | disposition home or self-care (01) ==
LOC: M ED 04:15 → M SDC 09:29
PROVIDERS: ATTEND Specialist
DX: O03.1 Delayed or excessive hemorrhage following incomplete spontaneous abortion (principal)
CPT/HCPCS: 36415; 59812; 76856; 80048; 84702; 85014; 85018; 85025; 86850; 86900; 86901; 88305; 93976; 99285; J0131; J1100; J1885; J2250; J2405; J3010

== ENCOUNTER → 2025-01-09 | Outpatient (REF) | payer BC, MEDICAID ==
[~2025-01-09] MED LIST changes: +MISO200T83; +OXYC-517
[2025-01-09 19:06] LABS: BASO # 0.0 10^3/uL (0.0-0.2); BASO % 0.2 % (0.0-1.0); EOS # 0.2 10^3/uL (0.0-0.5); EOS % 1.2 % (0.0-3.0); LYMPH # 2.6 10^3/uL (1.5-5.0); LYMPH % 21.4 % (24.0-44.0); MONO # 0.8 10^3/uL (0.0-0.8); MONO % 6.3 % (2.0-8.0); NEUTROPHILS # 8.6 10^3/uL (1.5-8.5); NEUTROPHILS % 70.5 % (36.0-66.0); PLATELET COUNT, AUTOMATED 371 10^3/uL (150-450)
== END ==
LOC: M LAB REF 18:05
PROVIDERS: ATTEND Nurse Practitioner Family
DX: D72.829 Elevated white blood cell count, unspecified (principal)

== ENCOUNTER → 2025-04-03 | Outpatient (REF) | payer BC, MEDICAID ==
[2025-04-03 16:56] LABS: BASO # 0.0 10^3/uL (0.0-0.2); BASO % 0.3 % (0.0-1.0); EOS # 0.3 10^3/uL (0.0-0.5); EOS % 3.2 % (0.0-3.0); LYMPH # 2.5 10^3/uL (1.5-5.0); LYMPH % 22.8 % (24.0-44.0); MONO # 0.7 10^3/uL (0.0-0.8); MONO % 6.6 % (2.0-8.0); NEUTROPHILS # 7.1 10^3/uL (1.5-8.5); NEUTROPHILS % 66.3 % (36.0-66.0); PLATELET COUNT, AUTOMATED 373 10^3/uL (150-450)
[2025-04-03 17:26] LABS: CHOLESTEROL LEVEL 177.0 MG/DL (<200); CHOLESTEROL RISK RATIO 4.91 (<5); IRON (FE) 59.0 UG/DL (50-170); LDL CHOLESTEROL 72.2 MG/DL (<100); NON-HDL-C 141.0 MG/DL; TRIGLYCERIDES LEVEL 344.0 MG/DL (<150)
[2025-04-03 17:32] LABS: ESTIMATED AVERAGE GLUCOSE 111.0 MG/DL (60-110)
== END ==
LOC: M LAB REF 16:27
PROVIDERS: ATTEND Nurse Practitioner Family
DX: D64.9 Anemia, unspecified (principal); E66.813 Obesity, class 3